=== PATIENT | female | born 1950 | race Caucasian/White ===

== ENCOUNTER 2018-10-29 10:30 | Inpatient (IN) ==
[2018-10-29] MEDS ORDERED: cefTRIAXone 1,000 MG in 0.9 % Sodium Chloride Mini Bag 100 ML IVPB SCH (12:00)
[2018-10-29] MEDS ORDERED: Vancomycin 0 MG in 0.9 % Sodium Chloride 250 ML IVPB SCH (12:00)
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
[2018-10-29] MEDS ORDERED: Ipratropium/Albuterol Neb 3 ML IH PRN (15:39)
[2018-10-29] MEDS: MetroNIDAZOLE 500 MG/100 ML 500 MG/100 ML BAG IVPB SCH ×2 (15:56→23:38)
[2018-10-29] MEDS: Cefepime HCl 2,000 MG in Water for inj. (sterile) 20 ML 20 ML IVP SCH ×2 (15:56→23:34)
[2018-10-29] MEDS ORDERED: tiZANidine 4 MG TABLET PO ONE (21:32)
[2018-10-29] MEDS ORDERED: traMADol 50 MG TABLET PO ONE (21:33)
[2018-10-29] MEDS ORDERED: Furosemide 20 MG TABLET PO PRN (21:34)
[2018-10-29] MEDS: Budesonide/Formoterol 160/4.5 1 PUFF INH IH SCH (22:48)
[2018-10-29] MEDS: Levalbuterol Neb 1.25 MG/3 ML IH SCH (22:49)
[2018-10-30] MEDS ORDERED: Acetaminophen IV 1,000 MG/100 ML INFUS..BTL IVPB ONE (00:18)
[2018-10-30] MEDS: Loratadine 10 MG TABLET PO SCH ×2 (00:23→08:29)
[2018-10-30] MEDS: amLODIPine 5 MG TABLET PO SCH ×2 (00:24→08:28)
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
[2018-10-30] MEDS ORDERED: traMADol 50 MG TABLET PO ONE (03:51)
[2018-10-30] MEDS: Levalbuterol Neb 1.25 MG/3 ML IH SCH ×4 (03:52→22:45)
[2018-10-30] MEDS ORDERED: Nitroglycerin 0.4 MG TAB.SUBL SL PRN (08:16)
[2018-10-30] MEDS ORDERED: *HR* HYDROcodone/Acet 5/325 mg TABLET PO PRN (08:16)
[2018-10-30] MEDS: MetroNIDAZOLE 500 MG/100 ML 500 MG/100 ML BAG IVPB SCH ×2 (08:28→15:27)
[2018-10-30] MEDS: Cefepime HCl 2,000 MG in Water for inj. (sterile) 20 ML 20 ML IVP SCH ×3 (08:28→22:21)
[2018-10-30] MEDS: Aspirin Enteric Coated 81 MG Tablet PO SCH (08:29)
[2018-10-30] MEDS ORDERED: Isosorbide MONOnitrate (24 HR) 30 MG TAB.ER.24H PO SCH (09:00)
[2018-10-30] MEDS ORDERED: Metoprolol XL (24 HR) Succ 50 MG TAB.ER.24H PO SCH (09:00)
[2018-10-30] MEDS: OXYCODONE Oral CONC 10 MG/0.5 ML ORAL.SYG SL PRN ×3 (09:10→21:10)
[2018-10-30] MEDS: Gabapentin 100 MG CAPSULE PO SCH ×3 (09:39→20:35)
[2018-10-30] MEDS: Cholecalciferol (D-3) 1,000 UNIT TABLET PO SCH (09:39)
[2018-10-30] MEDS: Budesonide/Formoterol 160/4.5 1 PUFF INH IH SCH ×2 (09:48→22:45)
[2018-10-30 10:29] LABS: Basophils % 0.3 %; Eosinophils % 0.7 %; Immature Granulocytes % 0.4 % (0-4); Mean Platelet Volume 11.8 fL (9.4-12.4); Segmented Neutrophils % 84.5 %
[2018-10-30 10:31] LABS: Eosinophils # 0.1 K/mcL (0.0-0.6); Hematocrit 29.9 % (35.3-44.9); Hemoglobin 9.4 g/dL (11.5-15.4); Immature Platelets 5.3 % (1.1-6.1); Lymphocytes # 0.6 K/mcL (0.6-4.6); Lymphocytes % 5.5 %; Mean Corpuscular HGB Conc 31.4 g/dL (31.6-35.5); Mean Corpuscular Hemoglobin 29.7 pg (28.0-33.3); Mean Corpuscular Volume 94.3 fL (83.0-100.0); Monocytes # 0.9 K/mcL (0.0-1.3); Monocytes % 8.6 %; Neutrophils # 8.7 K/mcL (1.6-8.9); Red Blood Count 3.17 M/mcL (3.82-4.97); Red Cell Distribution Width 14.3 % (11.5-14.5); White Blood Count 10.3 K/mcL (4.3-11.1)
[2018-10-30 10:48] LABS: BUN/Creatinine Ratio 20 (6-26); Blood Urea Nitrogen 16 mg/dL (8-23); Calcium 8.4 mg/dL (8.6-10.3); Carbon Dioxide 24 mEq/L (23-29); Chloride 109 mEq/L (98-107); Glucose 117 mg/dL (70-105); Osmolality,Calculated 292 (280-300); Potassium 3.6 mEq/L (3.5-5.1); Sodium 140 mEq/L (136-145); eGFR For African Americans > 60 (> 60); eGFR For Non-African Americans > 60 (> 60)
[2018-10-30 11:10] LABS: Platelet Count 91 K/mcL (140-400)
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
[2018-10-30] MEDS: Isosorbide MONOnitrate (24 HR) 30 MG TAB.ER.24H PO SCH (17:06)
[2018-10-30] MEDS: Metoprolol XL (24 HR) Succ 50 MG TAB.ER.24H PO SCH (17:06)
[2018-10-31] MEDS: MetroNIDAZOLE 500 MG/100 ML 500 MG/100 ML BAG IVPB SCH ×4 (00:09→23:54)
[2018-10-31] MEDS: Levalbuterol Neb 1.25 MG/3 ML IH SCH ×2 (04:12→10:43)
[2018-10-31 06:32] LABS: Basophils % 0.4 %; Eosinophils # 0.3 K/mcL (0.0-0.6); Eosinophils % 3.1 %; Hematocrit 30.2 % (35.3-44.9); Hemoglobin 9.4 g/dL (11.5-15.4); Immature Granulocytes % 0.4 % (0-4); Lymphocytes # 0.6 K/mcL (0.6-4.6); Lymphocytes % 7.1 %; Mean Corpuscular HGB Conc 31.1 g/dL (31.6-35.5); Mean Corpuscular Hemoglobin 29.3 pg (28.0-33.3); Mean Corpuscular Volume 94.1 fL (83.0-100.0); Mean Platelet Volume 11.9 fL (9.4-12.4); Monocytes # 0.7 K/mcL (0.0-1.3); Monocytes % 8.6 %; Neutrophils # 6.8 K/mcL (1.6-8.9); Platelet Count 103 K/mcL (140-400); Red Blood Count 3.21 M/mcL (3.82-4.97); Red Cell Distribution Width 14.4 % (11.5-14.5); Segmented Neutrophils % 80.4 %; White Blood Count 8.5 K/mcL (4.3-11.1)
[2018-10-31 06:54] LABS: BUN/Creatinine Ratio 19 (6-26); Blood Urea Nitrogen 14 mg/dL (8-23); Calcium 8.5 mg/dL (8.6-10.3); Carbon Dioxide 26 mEq/L (23-29); Chloride 108 mEq/L (98-107); Glucose 96 mg/dL (70-105); Osmolality,Calculated 290 (280-300); Potassium 3.8 mEq/L (3.5-5.1); Sodium 140 mEq/L (136-145); eGFR For African Americans > 60 (> 60); eGFR For Non-African Americans > 60 (> 60)
--- NOTE | 2018-10-31 08:18 | Internal Med Progress Note ---
Hospitalist Progress Note - Encounter Date of Encounter: 10/31/18 Time of Encounter: 08:16 - Subjective Interval History: Patient states she is not feeling well, very tired and frustrated. She is afebrile on room air. She is to have productive cough. Denies chest pain. Patient lives at home was family. Patient complains of right great toe pain, 8 out of 10 constant worsening with walking. I encouraged her to get up and walk she is afraid of pain from the toe. We discussed incentive spirometry, she agrees - Exam Vitals: Temp Pulse Resp BP Pulse Ox 98.3 F 85 20 157/74 91 10/31/18 07:09 10/31/18 07:09 10/31/18 07:09 10/31/18 07:09 10/31/18 07:09 Exam: CONSTITUTIONAL: patient appears as an age appropriate female in no acute distress. EYES Clear sclerae, bilateral pupils are equal, reactive to light. EMOI. RESPIRATORY: No accessory muscle use, bilateral crackles to auscultation, no wheezing, no crackles/rales. CARDIOVASCULAR: Regular heart rate, normal S1 and S2, no murmurs GASTROINTESTINAL: bowel sounds present, soft, no tenderness. MUSCULOSKELETAL: Joints in normal range of motion, no clubbing, no edema, no cyanosis. Right great toe ischemia NEUROLOGIC: CN II to XII are grossly intact, no focal neurological deficit. DVT Prophylaxis: Patient is only on aspirin due to history of recent subarachnoid hemorrhage - Summary of Assessment and Plan Summary of Assessment and Plan: (1) possible MRSA and gram negative bacterial pneumonia (HCAP), conitnue cefepime and vancomycin Current Visit: Yes Status: Acute Assessment and plan: recent hospitalization from 10/23-10/26 and received IVC filter placement. chest CTA showed multifocal airspace opacities within the right hemithorax patient reports increased shortness of breath with cough at home since her least hospitalization Plan: blood cultures x2 vancomycin, cefepime, flagyl day 1 (hx of penicillin allergy) PRN duonebs add incentitive spirometry (2) CAD (coronary artery disease) Current Visit: No Status: Chronic Qualifiers: Coronary Disease-Associated Artery/Lesion type: [place] artery [place] vs. transplanted heart: [place] heart Associated angina: without angina Qualified Code(s): I25.10 - Atherosclerotic heart disease of [place] coronary artery wi thout angina pectoris (3) HTN (hypertension) and hyperlipidemia Current Visit: No Status: Chronic Assessment and plan: resume home meds once verified Qualifiers: Hypertension type: essential hypertension Qualified Code(s): I10 - Essential (primary) hypertension (4) UTI with acute cystits POA Acute cystitis without hematuria: Urine cultures drawn in the ER growing strep group B and gram-negative rods. Patient currently on antibiotics. pending senmsitivity Current Visit: No Status: Chronic Qualifiers: Hyperlipidemia type: unspecified Qualified Code(s): E78.5 - Hyperlipidemia, unspecified (5) SLE (systemic lupus erythematosus) on plaqunil Current Visit: No Status: Chronic Qualifiers: Systemic lupus erythematosus type: other Systemic lupus erythematosus organ involvement: lung involvement Qualified Code(s): M32.13 - Lung involvement in systemic lupus erythematosus (6) DVT (deep venous thrombosis) Current Visit: No Status: Acute Assessment and plan: Hx of DVT, not on anticoagulation due to hx of traumatic subarachnoid hemorrhage s/p IVC filter placement. Qualifiers: DVT location: lower extremity Affected thrombotic vein of extremity: popliteal Chronicity: unspecified Laterality: right Qualified Code(s): I82.431 - Acute embolism and thrombosis of right popliteal vein (7) History of subarachnoid hemorrhage Current Visit: No Status: Acute (8) DVT prophylaxis, on ASA (9) Morbid obesity with BMI 46 (10) severe PAD with right ischemic toe, not a candidate for intervention due to SAH (11)Right knee severe DJD from CT scan, no acute fx Current Visit: Yes Status: Acute Assessment and plan: Hx of DVTs. Up and ambulate TID DIsposition: possible HHC in 1-2 days, consult PT and OT, pending UC culture, will check legionella - Time Spent with Patient Total time spent is greater than 50% in coordination of care (as documented) at patient's floor/unit and/or counseling patient: 25 - 35 minutes Plan of Care Discussed with: patient Internal Medicine: Result - Labs CBC & Chem 7: 10/31/18 05:54 10/31/18 05:54 Labs: Short CBC 10/30/18 10/31/18 Range/Units 10:08 05:54 WBC 10.3 8.5 (4.3-11.1) K/mcL Hgb 9.4 L D 9.4 L (11.5-15.4) g/dL Hct 29.9 L 30.2 L (35.3-44.9) % Plt Count 91 L 103 L (140-400) K/mcL Neutrophils # 8.7 6.8 (1.6-8.9) K/mcL BMP 10/30/18 10/31/18 10:08 05:54 Sodium 140 140 Potassium 3.6 3.8 Chloride 109 H 108 H Carbon Dioxide 24 26 BUN 16 14 Creatinine 0.79 0.73 Glucose 117 H 96 Calcium 8.4 L 8.5 L - Impressions Impressions Lower Extremity CT 10/30/18 18:17 IMPRESSION: 1. No acute osseous abnormality. 2. Severe tricompartmental degenerative changes of the knee with a moderate effusion. 3. Mild 1st MTP degenerative changes. D/ / Leonel Ram MD / Leonel Ram MD Interpreting Provider: Leonel Ram MD Consult Discharge Plan - Plan Referrals: NONE,PCP [Primary Care Provider] -
[2018-10-31] MEDS: Cefepime HCl 2,000 MG in Water for inj. (sterile) 20 ML 20 ML IVP SCH ×3 (09:51→23:53)
[2018-10-31] MEDS: amLODIPine 5 MG TABLET PO SCH (09:52)
[2018-10-31] MEDS: Gabapentin 100 MG CAPSULE PO SCH ×3 (09:52→20:13)
[2018-10-31] MEDS: Loratadine 10 MG TABLET PO SCH (09:52)
[2018-10-31] MEDS: Cholecalciferol (D-3) 1,000 UNIT TABLET PO SCH (09:52)
[2018-10-31] MEDS: OXYCODONE Oral CONC 10 MG/0.5 ML ORAL.SYG SL PRN ×3 (09:53→22:22)
[2018-10-31] MEDS: Aspirin Enteric Coated 81 MG Tablet PO SCH (09:53)
[2018-10-31] MEDS: Budesonide/Formoterol 160/4.5 1 PUFF INH IH SCH ×2 (10:43→19:58)
[2018-10-31] MEDS: Isosorbide MONOnitrate (24 HR) 30 MG TAB.ER.24H PO SCH (17:49)
[2018-10-31] MEDS: Metoprolol XL (24 HR) Succ 50 MG TAB.ER.24H PO SCH (17:49)
[2018-10-31] MEDS ORDERED: Aminoglycoside Consult 1 EACH MC ONE (20:09)
[2018-11-01] MEDS: OXYCODONE Oral CONC 10 MG/0.5 ML ORAL.SYG SL PRN ×2 (03:38→09:24)
[2018-11-01] MEDS: Budesonide/Formoterol 160/4.5 1 PUFF INH IH SCH ×2 (07:20→19:56)
[2018-11-01 07:44] LABS: Basophils % 0.4 %; Eosinophils # 0.4 K/mcL (0.0-0.6); Eosinophils % 4.6 %; Hematocrit 33.6 % (35.3-44.9); Hemoglobin 10.3 g/dL (11.5-15.4); Immature Granulocytes % 0.5 % (0-4); Mean Corpuscular HGB Conc 30.7 g/dL (31.6-35.5); Mean Corpuscular Hemoglobin 28.7 pg (28.0-33.3); Mean Corpuscular Volume 93.6 fL (83.0-100.0); Monocytes # 0.8 K/mcL (0.0-1.3); Monocytes % 8.7 %; Neutrophils # 7.2 K/mcL (1.6-8.9); Platelet Count 152 K/mcL (140-400); Red Blood Count 3.59 M/mcL (3.82-4.97); Red Cell Distribution Width 14.5 % (11.5-14.5); Segmented Neutrophils % 75.8 %; White Blood Count 9.5 K/mcL (4.3-11.1)
[2018-11-01 07:56] LABS: BUN/Creatinine Ratio 17 (6-26); Blood Urea Nitrogen 11 mg/dL (8-23); Calcium 8.7 mg/dL (8.6-10.3); Carbon Dioxide 25 mEq/L (23-29); Chloride 105 mEq/L (98-107); Glucose 92 mg/dL (70-105); Osmolality,Calculated 287 (280-300); Sodium 139 mEq/L (136-145); eGFR For African Americans > 60 (> 60); eGFR For Non-African Americans > 60 (> 60)
[2018-11-01] MEDS: amLODIPine 5 MG TABLET PO SCH (09:28)
[2018-11-01] MEDS: Aspirin Enteric Coated 81 MG Tablet PO SCH (09:28)
[2018-11-01] MEDS: Gabapentin 100 MG CAPSULE PO SCH (09:28)
[2018-11-01] MEDS: Cefepime HCl 2,000 MG in Water for inj. (sterile) 20 ML 20 ML IVP SCH ×2 (09:28→13:08)
[2018-11-01] MEDS: Cholecalciferol (D-3) 1,000 UNIT TABLET PO SCH (09:28)
[2018-11-01] MEDS: Loratadine 10 MG TABLET PO SCH (09:28)
[2018-11-01] MEDS: MetroNIDAZOLE 500 MG/100 ML 500 MG/100 ML BAG IVPB SCH ×2 (09:29→13:05)
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
[2018-11-01] MEDS: Gabapentin 400 MG CAPSULE PO SCH ×3 (13:16→20:36)
[2018-11-01] MEDS: *HR* OxyCODONE/APAP 10/325 TABLET PO PRN ×2 (13:34→20:36)
[2018-11-01] MEDS: metroNIDAZOLE 500 MG TABLET PO SCH ×2 (17:00→20:36)
[2018-11-01] MEDS: Doxycycline 100 MG CAPSULE PO SCH (17:00)
[2018-11-01] MEDS: Metoprolol XL (24 HR) Succ 50 MG TAB.ER.24H PO SCH (17:00)
[2018-11-01] MEDS: Isosorbide MONOnitrate (24 HR) 30 MG TAB.ER.24H PO SCH (17:00)
[2018-11-01] MEDS: *HR* OxyCODONE/APAP 5/325 TABLET PO PRN (17:15)
[2018-11-01] MEDS ORDERED: Doxycycline 100 MG in 0.9 % Sodium Chloride Mini Bag 100 ML IVPB SCH (18:00)
[2018-11-01] MEDS: Levalbuterol Neb 1.25 MG/3 ML IH PRN (19:56)
[2018-11-01] MEDS: Cefdinir 300 MG CAPSULE PO SCH (20:36)
[2018-11-02] MEDS: *HR* OxyCODONE/APAP 10/325 TABLET PO PRN ×4 (00:42→21:20)
[2018-11-02 04:30] LABS: Basophils # 0.1 K/mcL (0.0-0.2); Basophils % 0.7 %; Eosinophils # 0.4 K/mcL (0.0-0.6); Eosinophils % 5.1 %; Hematocrit 31.1 % (35.3-44.9); Hemoglobin 9.9 g/dL (11.5-15.4); Immature Granulocytes % 1.1 % (0-4); Lymphocytes % 11.9 %; Mean Corpuscular HGB Conc 31.8 g/dL (31.6-35.5); Mean Corpuscular Volume 91.2 fL (83.0-100.0); Mean Platelet Volume 11.4 fL (9.4-12.4); Monocytes % 12.2 %; Neutrophils # 5.9 K/mcL (1.6-8.9); Platelet Count 174 K/mcL (140-400); Red Blood Count 3.41 M/mcL (3.82-4.97); Red Cell Distribution Width 14.6 % (11.5-14.5); White Blood Count 8.5 K/mcL (4.3-11.1)
[2018-11-02 05:09] LABS: BUN/Creatinine Ratio 22 (6-26); Blood Urea Nitrogen 14 mg/dL (8-23); Calcium 8.4 mg/dL (8.6-10.3); Carbon Dioxide 24 mEq/L (23-29); Chloride 107 mEq/L (98-107); Glucose 99 mg/dL (70-105); Osmolality,Calculated 289 (280-300); Potassium 3.8 mEq/L (3.5-5.1); Sodium 139 mEq/L (136-145); eGFR For African Americans > 60 (> 60); eGFR For Non-African Americans > 60 (> 60)
[2018-11-02] MEDS: *HR* OxyCODONE/APAP 5/325 TABLET PO PRN ×2 (05:39→09:14)
[2018-11-02] MEDS: Doxycycline 100 MG CAPSULE PO SCH ×2 (05:39→17:01)
[2018-11-02] MEDS: Levalbuterol Neb 1.25 MG/3 ML IH PRN ×2 (07:31→19:36)
[2018-11-02] MEDS: Budesonide/Formoterol 160/4.5 1 PUFF INH IH SCH ×2 (07:31→19:36)
[2018-11-02] MEDS: Cholecalciferol (D-3) 1,000 UNIT TABLET PO SCH (09:14)
[2018-11-02] MEDS: Aspirin Enteric Coated 81 MG Tablet PO SCH (09:14)
[2018-11-02] MEDS: Gabapentin 400 MG CAPSULE PO SCH ×3 (09:14→21:20)
[2018-11-02] MEDS: metroNIDAZOLE 500 MG TABLET PO SCH ×3 (09:15→21:20)
[2018-11-02] MEDS: amLODIPine 5 MG TABLET PO SCH (09:15)
[2018-11-02] MEDS: Cefdinir 300 MG CAPSULE PO SCH ×2 (09:15→21:20)
[2018-11-02] MEDS: Loratadine 10 MG TABLET PO SCH (09:24)
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
--- NOTE | 2018-11-02 16:47 | Internal Med Progress Note ---
Hospitalist Progress Note - Encounter Date of Encounter: 11/02/18 Time of Encounter: 16:42 - Subjective Interval History: Angela is not happy, she really wants to go to rehab, she is in so much pain 12/22, I disucced PT did not qualify her for SNF, Angela requests another formal PT evaluation. - Exam Vitals: Temp Pulse Resp BP Pulse Ox 98.5 F 91 17 149/75 93 11/02/18 12:28 11/02/18 12:28 11/02/18 12:28 11/02/18 12:11/02/18 12:28 Exam: CONSTITUTIONAL: patient appears as an age appropriate female in no acute distress. EYES Clear sclerae, bilateral pupils are equal, reactive to light. EMOI. RESPIRATORY: No accessory muscle use, bilateral crackles to auscultation, no wheezing, no crackles/rales. CARDIOVASCULAR: Regular heart rate, normal S1 and S2, no murmurs GASTROINTESTINAL: bowel sounds present, soft, no tenderness. MUSCULOSKELETAL: Joints in normal range of motion, no clubbing, no edema, no cyanosis. Right great toe ischemia NEUROLOGIC: CN II to XII are grossly intact, no focal neurological deficit. DVT Prophylaxis: Patient is only on aspirin due to history of recent subarachnoid hemorrhage - Summary of Assessment and Plan Summary of Assessment and Plan: (1) possible MRSA and gram negative bacterial pneumonia (HCAP), conitnue cefepime and vancomycin Current Visit: Yes Status: Acute Assessment and plan: recent hospitalization from 10/23-10/26 and received IVC filter placement. chest CTA showed multifocal airspace opacities within the right hemithorax patient reports increased shortness of breath with cough at home since her least hospitalization Plan: blood cultures x2, negative legionella vancomycin, cefepime, flagyl day 1 (hx of penicillin allergy) PRN duonebs add incentitive spirometry d/c vancomycin, add doxy can discharge on oral ATB (2) CAD (coronary artery disease) Current Visit: No Status: Chronic Qualifiers: Coronary Disease-Associated Artery/Lesion type: [place] artery [place] vs. transplanted heart: [place] heart Associated angina: without angina Qualified Code(s): I25.10 - Atherosclerotic heart disease of [place] coronary artery without angina pectoris (3) HTN (hypertension) and hyperlipidemia Current Visit: No Status: Chronic Assessment and plan: resume home meds once verified Qualifiers: Hypertension type: essential hypertension Qualified Code(s): I10 - Essential (primary) hypertension (4) UTI with acute cystits POA Acute cystitis without hematuria: Urine cultures drawn in the ER growing strep group B and gram-negative rods. Patient currently on antibiotics. pending senmsitivity Current Visit: No Status: Chronic Qualifiers: Hyperlipidemia type: unspecified Qualified Code(s): E78.5 - Hyperlipidemia, unspecified (5) SLE (systemic lupus erythematosus) on plaqunil Current Visit: No Status: Chronic Qualifiers: Systemic lupus erythematosus type: other Systemic lupus erythematosus organ involvement: lung involvement Qualified Code(s): M32.13 - Lung involvement in systemic lupus erythematosus (6) DVT (deep venous thrombosis) Current Visit: No Status: Acute Assessment and plan: Hx of DVT, not on anticoagulation due to hx of traumatic subarachnoid hemorrhage s/p IVC filter placement. Qualifiers: DVT location: lower extremity Affected thrombotic vein of extremity: popliteal Chronicity: unspecified Laterality: right Qualified Code(s): I82.431 - Acute embolism and thrombosis of right popliteal vein (7) History of subarachnoid hemorrhage Current Visit: No Status: Acute (8) DVT prophylaxis, on ASA (9) Morbid obesity with BMI 46 (10) severe PAD with right ischemic toe, not a candidate for intervention due to SAH , pain control with percoert 5 /325 Q4 and 10/325 for pain scale >5, increased neurontin to 400 mg tid (11)Right knee severe DJD from CT scan, no acute fx Current Visit: Yes Status: Acute Assessment and plan: Hx of DVTs. Up and ambulate TID DIsposition: Patient refused to go home with home care, requests another PT evaluation, I spoke to PT , they will see her tomorrow. patient has multiple comorbidities, and uncontroled pain from ischemic toe, she may benifit from SNF, wait for PT re-evaluation - Time Spent with Patient Total time spent is greater than 50% in coordination of care (as documented) at patient's floor/unit and/or counseling patient: Internal Medicine: Result - Labs CBC & Chem 7: 11/02/18 04:14 11/02/18 04:14 Labs: Short CBC 11/02/18 Range/Units 04:14 WBC 8.5 (4.3-11.1) K/mcL Hgb 9.9 L (11.5-15.4) g/dL Hct 31.1 L (35.3-44.9) % Plt Count 174 (140-400) K/mcL Neutrophils # 5.9 (1.6-8.9) K/mcL BMP 11/02/18 04:14 Sodium 139 Potassium 3.8 Chloride 107 Carbon Dioxide 24 BUN 14 Creatinine 0.64 Glucose 99 Calcium 8.4 L Consult Discharge Plan - Plan Referrals: NONE,PCP [Primary Care Provider] -
[2018-11-02] MEDS: Isosorbide MONOnitrate (24 HR) 30 MG TAB.ER.24H PO SCH (17:00)
[2018-11-02] MEDS: Metoprolol XL (24 HR) Succ 50 MG TAB.ER.24H PO SCH (17:01)
[2018-11-03] MEDS: Doxycycline 100 MG CAPSULE PO SCH (06:11)
[2018-11-03] MEDS: Budesonide/Formoterol 160/4.5 1 PUFF INH IH SCH ×2 (07:56→20:14)
[2018-11-03] MEDS: Loratadine 10 MG TABLET PO SCH (08:06)
[2018-11-03] MEDS: Cefdinir 300 MG CAPSULE PO SCH (08:06)
[2018-11-03] MEDS: Cholecalciferol (D-3) 1,000 UNIT TABLET PO SCH (08:06)
[2018-11-03] MEDS: Aspirin Enteric Coated 81 MG Tablet PO SCH (08:06)
[2018-11-03] MEDS: amLODIPine 5 MG TABLET PO SCH (08:06)
[2018-11-03] MEDS: metroNIDAZOLE 500 MG TABLET PO SCH (08:06)
[2018-11-03] MEDS: Gabapentin 400 MG CAPSULE PO SCH ×3 (08:06→20:32)
[2018-11-03] MEDS: *HR* OxyCODONE/APAP 10/325 TABLET PO PRN ×4 (08:06→20:32)
--- NOTE | 2018-11-03 09:27 | Internal Med Progress Note ---
Hospitalist Progress Note - Encounter Date of Encounter: 11/03/18 Time of Encounter: 09:25 - Subjective Interval History: Patient was seen and examined at the bedside., Labs and imaging reviewed Patient state right great toe paiun is under control still has erythema and swelling of right foot switch to iv clindamycin pending pt/ot for possible SNF placement on Monday or Monday - Exam Vitals: Temp Pulse Resp BP Pulse Ox 98.5 F 80 14 134/77 93 11/03/18 07:53 11/03/18 07:53 11/03/18 07:56 11/03/18 07:53 11/03/18 07:56 Exam: Physical examination: Gen.: Patient is alert and oriented, not in respiratory distress of pain HEENT: perrla , EOMI, no thyroid gland enlargement, no neck mass, supple neck Heart: S1 and S2 ju[place], normal sinus rhythm, no cardiac murmur no gallop rhythm Chest: Air entry equal bilaterally, clear chest, no wheezing, crackles or cre pitation Abdomen: Soft nontender nondistended positive bowel sounds, no organomegaly Extremities: There is swelling, tenderness with erythema of the right foot, there is bluish blackish discoloration of the right great toe Neuro: Able to move all 4 limbs, no focal neurological deficit. DVT Prophylaxis: aspirin - Summary of Assessment and Plan Summary of Assessment and Plan: (1) possible pneumonia Current Visit: Yes Status: Acute Assessment and plan: recent hospitalization from 10/23-10/26 and received IVC filter placement. chest CTA showed multifocal airspace opacities within the right hemithorax patient reports increased shortness of breath with cough at home since her least hospitalization blood cultures x2, negative legionella Switch to IV clindamycin Patient denies shortness of breath or cough PRN duonebs add incentitive spirometry can discharge on oral ATB Order another follow-up chest x-ray and serum procal 2- peripheral vascular disease: Patient has known moderate peripheral vascular disease of the right lower extremity with an occluded anterior tibial and peroneal artery, patient's sister has evidence of right foot cellulitis with skin erythema and bluish discoloration of right great toe with right great toe pain For now for scar surgeon on board to comment no intervention as the patient unable to tolerate aggressive antiplatelets or anticoagulation secondary to recent subarachnoid hemorrhage. Continue on baby aspirin 81 mg daily Because of the persistent cellulitis of the right foot concerning for partial recovery, switch o iv clindamycin 300 mg every 8 hours DC oral doxycycline and oral Flagyl (2) CAD (coronary artery disease) Current Visit: No Status: Chronic Qualifiers: Coronary Disease-Associated Artery/Lesion type: [place] artery [place] vs. transplanted heart: [place] heart Associated angina: without angina Qualified Code(s): I25.10 - Atherosclerotic heart disease of [place] coronary artery without angina pectoris (3) HTN (hypertension) and hyperlipidemia Current Visit: No Status: Chronic Assessment and plan: resume home meds once verified Qualifiers: Hypertension type: essential hypertension Qualified Code(s): I10 - Essential (primary) hypertension (4) UTI with acute cystits POA Acute cystitis without hematuria: Urine cultures drawn in the ER on 10/29 growing strep group B and E coli sensitive to third- generation cephalosporin, continue on ceftin 500 mg q12h for total 7 days Rx Repeated urine culture on October 30 is negative Current Visit: No Status: Chronic Qualifiers: Hyperlipidemia type: unspecified Qualified Code(s): E78.5 - Hyperlipidemia, unspecified (5) SLE (systemic lupus erythematosus) on plaqunil Current Visit: No Status: Chronic Qualifiers: Systemic lupus erythematosus type: other Systemic lupus erythematosus organ involvement: lung involvement Qualified Code(s): M32.13 - Lung involvement in systemic lupus erythematosus (6) DVT (deep venous thrombosis) Current Visit: No Status: Acute Assessment and plan: Hx of DVT, not on anticoagulation due to hx of traumatic subarachnoid hemorrhage s/p IVC filter placement. Qualifiers: DVT location: lower extremity Affected thrombotic vein of extremity: popliteal Chronicity: unspecified Laterality: right Qualified Code(s): I82.431 - Acute embolism and thrombosis of right popliteal vein (7) History of subarachnoid hemorrhage Current Visit: No Status: Acute Heart the follow-ups CAT scan of the head (8) DVT prophylaxis, on ASA (9) Morbid obesity with BMI 46 (10) severe PAD with right ischemic toe, not a candidate for intervention due to SAH , pain control with percoert 5 /325 Q4 and 10/325 for pain scale >5, increased neurontin to 400 mg tid (11)Right knee severe DJD from CT scan, no acute fx Current Visit: Yes Status: Acute Assessment and plan: Hx of DVTs. Up and ambulate TID DIsposition: Patient requested another PT evaluation, waiting for another PT evaluation and possible SNF discharge on Monday or Monday patient has multiple comorbidities, and uncontroled pain from ischemic toe, she may benifit from SNF, wait for PT re-evaluation - Time Spent with Patient Total time spent is greater than 50% in coordination of care (as documented) at patient's floor/unit and/or counseling patient: Plan of Care Discussed with: patient Internal Medicine: Result - Labs CBC & Chem 7: 11/02/18 04:14 11/02/18 04:14 Consult Discharge Plan - Plan Referrals: NONE,PCP [Primary Care Provider] -
[2018-11-03] MEDS: Clindamycin 300 MG in D5% in Water 50 ML IVPB SCH (14:55)
[2018-11-03] MEDS: Isosorbide MONOnitrate (24 HR) 30 MG TAB.ER.24H PO SCH (16:05)
[2018-11-03] MEDS: Metoprolol XL (24 HR) Succ 50 MG TAB.ER.24H PO SCH (16:05)
[2018-11-03] MEDS: Furosemide Oral Soln 40 MG/4 ML UDC PO SCH (17:09)
[2018-11-03] MEDS: Cefuroxime PO 500 MG TABLET PO SCH (17:09)
[2018-11-03] MEDS: Levalbuterol Neb 1.25 MG/3 ML IH PRN (20:14)
[2018-11-04] MEDS: Clindamycin 300 MG in D5% in Water 50 ML IVPB SCH ×3 (00:36→17:29)
[2018-11-04] MEDS: *HR* OxyCODONE/APAP 10/325 TABLET PO PRN ×6 (00:37→21:57)
[2018-11-04] MEDS: Cefuroxime PO 500 MG TABLET PO SCH (04:28)
[2018-11-04] MEDS: Levalbuterol Neb 1.25 MG/3 ML IH PRN ×2 (07:59→20:34)
[2018-11-04] MEDS: Budesonide/Formoterol 160/4.5 1 PUFF INH IH SCH ×2 (07:59→20:36)
[2018-11-04] MEDS: Loratadine 10 MG TABLET PO SCH (08:32)
[2018-11-04] MEDS: Cholecalciferol (D-3) 1,000 UNIT TABLET PO SCH (08:32)
[2018-11-04] MEDS: Furosemide Oral Soln 40 MG/4 ML UDC PO SCH (08:32)
[2018-11-04] MEDS: Aspirin Enteric Coated 81 MG Tablet PO SCH (08:32)
[2018-11-04] MEDS: Gabapentin 400 MG CAPSULE PO SCH ×3 (08:32→21:57)
[2018-11-04] MEDS: amLODIPine 5 MG TABLET PO SCH (08:32)
[2018-11-04] MEDS ORDERED: Cefdinir 300 MG CAPSULE PO SCH (09:00)
--- NOTE | 2018-11-04 09:00 | Internal Med Progress Note ---
Hospitalist Progress Note - Encounter Date of Encounter: 11/04/18 Time of Encounter: 08:58 - Subjective Interval History: the patient was seen and examined at bedside. state right foot pain is better erythema and swelling is better too no fever breathing is better CXr yesterday show Improving bilateral asymmetric multifocal pneumonia more pro minent on the right.probably small right pleural effusion, resumed on lasix - Exam Vitals: Temp Pulse Resp BP Pulse Ox 98.0 F 78 16 147/80 93 11/04/18 08:04 11/04/18 08:04 11/04/18 08:04 11/04/18 08:04 11/04/18 08:42 Exam: Physical examination: Gen.: Patient is alert and oriented, not in respiratory distress of pain HEENT: perrla , EOMI, no thyroid gland enlargement, no neck mass, supple neck Heart: S1 and S2 juanpablo, normal sinus rhythm, no cardiac murmur no gallop rhythm Chest: Air entry equal bilaterally, clear chest, no wheezing, crackles or crepitation Abdomen: Soft nontender nondistended positive bowel sounds, no organomegaly Extremities: There is swelling, tenderness with erythema of the right foot, there is bluish blackish discoloration of the right great toe Neuro: Able to move all 4 limbs, no focal neurological deficit. DVT Prophylaxis: aspirin - Summary of Assessment and Plan Summary of Assessment and Plan: (1) possible pneumonia Current Visit: Yes Status: Acute Assessment and plan: recent hospitalization from 10/23-10/26 and received IVC filter placement. chest CTA showed multifocal airspace opacities within the right hemithorax blood cultures x2, negative legionella continue on IV clindamycin an d switch to oral on d/c Patient states breathing is better follow CXR on 11/02 show Improving bilateral asymmetric multifocal pneumonia more prominent on the right with right pleural effusion small PRN duonebs add incentitive spirometry serum procal 1.8 saturating well on RA 2- Peripheral vascular disease: Patient has known moderate peripheral vascular disease of the right lower extremity with an occluded anterior tibial and peroneal artery, patient's sister has evidence of right foot cellulitis with skin erythema and bluish discoloration of right great toe with right great toe pain For now for scar surgeon on board to comment no intervention as the patient unable to tolerate aggressive antiplatelets or anticoagulation secondary to recent subarachnoid hemorrhage. Continue on baby aspirin 81 mg daily Because of the persistent cellulites of the right foot concerning for partial r ecovery, switch o iv clindamycin 300 mg every 8 hours clinically cellulites looks better than yesterday with less swelling and erythema follow up with vascular surgery outpatient (2) CAD (coronary artery disease) Current Visit: No Status: Chronic Qualifiers: Coronary Disease-Associated Artery/Lesion type: [place] artery [place] vs. transplanted heart: [place] heart Associated angina: without angina Qualified Code(s): I25.10 - Atherosclerotic heart disease of [place] coronary artery without angina pectoris (3) HTN (hypertension) and hyperlipidemia Current Visit: No Status: Chronic Assessment and plan: resume home meds once verified Qualifiers: Hypertension type: essential hypertension Qualified Code(s): I10 - Essential (primary) hypertension (4) UTI with acute cystits POA Acute cystitis without hematuria: Urine cultures drawn in the ER on 10/29 growing strep group B and E coli sensitive to third- generation cephalosporins and levofloxacin, finished 7 days course of AB for UTI d/c cefitin PO Current Visit: No Status: Chronic Qualifiers: Hyperlipidemia type: unspecified Qualified Code(s): E78.5 - Hyperlipidemia, unspecified (5) SLE (systemic lupus erythematosus) on plaqunil Current Visit: No Status: Chronic Qualifiers: Systemic lupus erythematosus type: other Systemic lupus erythematosus organ involvement: lung involvement Qualified Code(s): M32.13 - Lung involvement in systemic lupus erythematosus (6) DVT (deep venous thrombosis) Current Visit: No Status: Acute Assessment and plan: Hx of DVT, not on anticoagulation due to hx of traumatic subarachnoid hemorrhage s/p IVC filter placement. Qualifiers: DVT location: lower extremity Affected thrombotic vein of extremity: popliteal Chronicity: unspecified Laterality: right Qualified Code(s): I82.431 - Acute embolism and thrombosis of right popliteal vein (7) History of subarachnoid hemorrhage Current Visit: No Status: Acute CT head on 11/03 show Resolved subarachnoid hemorrhage. need follow up with neurosurgery for clearance before vascular surgery discussed with patient (8) DVT prophylaxis, on ASA (9) Morbid obesity with BMI 46 (10) severe PAD with right ischemic toe, not a candidate for intervention due to SAH , pain control with percoert 5 /325 Q4 and 10/325 for pain scale >5, increased neurontin to 400 mg tid (11)Right knee severe DJD from CT scan, no acute fx Current Visit: Yes Status: Acute Assessment and plan: Hx of DVTs. Up and ambulate TID DIsposition: Patient requested another PT evaluation, PT recommend SNF discharge on Monday or Monday patient has multiple comorbidities, and uncontroled pain from ischemic toe, she will benifit from SNF. waiting for placement - Time Spent with Patient Total time spent is greater than 50% in coordination of care (as documented) at patient's floor/unit and/or counseling patient: Internal Medicine: Result - Labs CBC & Chem 7: 11/02/18 04:14 11/02/18 04:14 - Impressions Impressions Head CT 11/03/18 09:22 IMPRESSION: Resolved subarachnoid hemorrhage. No acute intracranial process identified. D/ / Song Littlejohn MD / Song Littlejohn MD Interpreting Provider: Song Littlejohn MD Chest X-Ray 11/03/18 09:31 IMPRESSION: 1. Improving bilateral asymmetric multifocal pneumonia more prominent on the right. 2. Probable trace right pleural effusion. D/ / 11/03/2018 12:07:07 Darin Avalos MD / janett Interpreting Provider: Darin Avalos MD Consult Discharge Plan - Plan Referrals: NONE,PCP [Primary Care Provider] -
[2018-11-04 10:05] LABS: Hemoglobin 10.4 g/dL (11.5-15.4); Mean Corpuscular HGB Conc 31.5 g/dL (31.6-35.5); Mean Corpuscular Hemoglobin 29.1 pg (28.0-33.3); Mean Corpuscular Volume 92.2 fL (83.0-100.0); Mean Platelet Volume 10.8 fL (9.4-12.4); Platelet Count 234 K/mcL (140-400); Red Blood Count 3.58 M/mcL (3.82-4.97); Red Cell Distribution Width 14.6 % (11.5-14.5); White Blood Count 9.7 K/mcL (4.3-11.1)
[2018-11-04 10:26] LABS: Alanine Aminotransferase 14 Units/L (7-52); Albumin 3.1 g/dL (3.5-5.7); Albumin/Globulin Ratio 1.1 (1.1-2.2); Alkaline Phosphatase 40 Units/L (34-104); Aspartate Amino Transferase 22 Units/L (13-39); BUN/Creatinine Ratio 13 (6-26); Bilirubin,Total 0.3 mg/dL (0.3-1.0); Blood Urea Nitrogen 9 mg/dL (8-23); Calcium 8.5 mg/dL (8.6-10.3); Carbon Dioxide 28 mEq/L (23-29); Chloride 103 mEq/L (98-107); Globulin 2.8 g/dL (2.4-3.5); Glucose 117 mg/dL (70-105); Magnesium 1.7 mg/dL (1.6-2.6); Osmolality,Calculated 288 (280-300); Phosphorous 3.4 mg/dL (2.7-4.5); Potassium 3.5 mEq/L (3.5-5.1); Sodium 139 mEq/L (136-145); Total Protein 5.9 g/dL (6.4-8.9); eGFR For African Americans > 60 (> 60); eGFR For Non-African Americans > 60 (> 60)
[2018-11-04] MEDS: Isosorbide MONOnitrate (24 HR) 30 MG TAB.ER.24H PO SCH (16:29)
[2018-11-04] MEDS: Metoprolol XL (24 HR) Succ 50 MG TAB.ER.24H PO SCH (16:31)
[2018-11-05] MEDS: Clindamycin 300 MG in D5% in Water 50 ML IVPB SCH ×2 (02:49→09:17)
[2018-11-05] MEDS: *HR* OxyCODONE/APAP 10/325 TABLET PO PRN ×4 (02:50→17:45)
[2018-11-05 04:19] LABS: Hematocrit 30.6 % (35.3-44.9); Hemoglobin 9.6 g/dL (11.5-15.4); Mean Corpuscular HGB Conc 31.4 g/dL (31.6-35.5); Mean Corpuscular Volume 92.4 fL (83.0-100.0); Platelet Count 222 K/mcL (140-400); Red Blood Count 3.31 M/mcL (3.82-4.97); Red Cell Distribution Width 14.7 % (11.5-14.5); White Blood Count 9.9 K/mcL (4.3-11.1)
[2018-11-05 04:41] LABS: Alanine Aminotransferase 13 Units/L (7-52); Albumin 2.9 g/dL (3.5-5.7); Albumin/Globulin Ratio 1.2 (1.1-2.2); Alkaline Phosphatase 37 Units/L (34-104); Aspartate Amino Transferase 19 Units/L (13-39); BUN/Creatinine Ratio 16 (6-26); Bilirubin,Total 0.2 mg/dL (0.3-1.0); Blood Urea Nitrogen 12 mg/dL (8-23); Calcium 8.5 mg/dL (8.6-10.3); Carbon Dioxide 30 mEq/L (23-29); Chloride 100 mEq/L (98-107); Globulin 2.5 g/dL (2.4-3.5); Glucose 108 mg/dL (70-105); Magnesium 1.8 mg/dL (1.6-2.6); Osmolality,Calculated 288 (280-300); Phosphorous 3.9 mg/dL (2.7-4.5); Potassium 3.8 mEq/L (3.5-5.1); Sodium 139 mEq/L (136-145); Total Protein 5.4 g/dL (6.4-8.9); eGFR For African Americans > 60 (> 60); eGFR For Non-African Americans > 60 (> 60)
[2018-11-05] MEDS: Budesonide/Formoterol 160/4.5 1 PUFF INH IH SCH (07:32)
[2018-11-05] MEDS: Levalbuterol Neb 1.25 MG/3 ML IH PRN (07:39)
[2018-11-05] MEDS: Gabapentin 400 MG CAPSULE PO SCH ×2 (08:40→17:44)
[2018-11-05] MEDS: Loratadine 10 MG TABLET PO SCH (08:40)
[2018-11-05] MEDS: Cholecalciferol (D-3) 1,000 UNIT TABLET PO SCH (08:40)
[2018-11-05] MEDS: Furosemide Oral Soln 40 MG/4 ML UDC PO SCH (08:40)
[2018-11-05] MEDS: Aspirin Enteric Coated 81 MG Tablet PO SCH (08:40)
[2018-11-05] MEDS: amLODIPine 5 MG TABLET PO SCH (08:42)
[2018-11-05] MEDS ORDERED: Doxycycline 100 MG CAPSULE PO SCH (09:30)
[2018-11-05] MEDS ORDERED: Cefdinir 300 MG CAPSULE PO SCH (09:30)
--- NOTE | 2018-11-05 14:01 | Discharge Summary ---
- NOTES TO OUTPATIENT PROVIDER Notes to Outpatient Provider: follow up with ischemic foot with Dr Morgan Orders not resulted at time of discharge: Pending orders 11/03/18 15:48 Bedside Swallowing Evaluation [EVAL] Routine Date of Encounter: 11/05/18 Time of Encounter: 13:53 Hospital course: Ms. Crowley is a 68 year old female (1) possible MRSA and gram negative bacterial pneumonia (HCAP), conitnue cefepime and vancomycin Current Visit: Yes Status: Acute Assessment and plan: recent hospitalization from 10/23-10/26 and received IVC filter placement. chest CTA showed multifocal airspace opacities within the right hemithorax patient reports increased shortness of breath with cough at home since her least hospitalization Plan: blood cultures x2, negative legionella vancomycin, cefepime, flagyl day (hx of penicillin allergy) PRN duonebs add incentitive spirometry d/c vancomycin, add doxy can discharge on oral ATB (2) CAD (coronary artery disease) Current Visit: No Status: Chronic Qualifiers: Coronary Disease-Associated Artery/Lesion type: [place] artery [place] vs. transplanted heart: [place] heart Associated angina: without angina Qualified Code(s): I25.10 - Atherosclerotic heart disease of [place] coronary artery without angina pectoris (3) HTN (hypertension) and hyperlipidemia Current Visit: No Status: Chronic Assessment and plan: resume home meds once verified Qualifiers: Hypertension type: essential hypertension Qualified Code(s): I10 - Essential (primary) hypertension (4) UTI with acute cystits POA Acute cystitis without hematuria: Urine cultures drawn in the ER growing strep group B and gram-negative rods. Patient currently on antibiotics. pending senmsitivity Current Visit: No Status: Chronic Qualifiers: Hyperlipidemia type: unspecified Qualified Code(s): E78.5 - Hyperlipidemia, unspecified (5) SLE (systemic lupus erythematosus) on plaqunil Current Visit: No Status: Chronic Qualifiers: Systemic lupus erythematosus type: other Systemic lupus erythematosus organ involvement: lung involvement Qualified Code(s): M32.13 - Lung involvement in systemic lupus erythematosus (6) DVT (deep venous thrombosis) Current Visit: No Status: Acute Assessment and plan: Hx of DVT, not on anticoagulation due to hx of traumatic subarachnoid hemorrhage s/p IVC filter placement. Qualifiers: DVT location: lower extremity Affected thrombotic vein of extremity: popliteal Chronicity: unspecified Laterality: right Qualified Code(s): I82.431 - Acute embolism and thrombosis of right popliteal vein (7) History of subarachnoid hemorrhage, repepat CT showed improvement, follow up with Dr Cesar. Current Visit: No Status: Acute (8) DVT prophylaxis, on ASA (9) Morbid obesity with BMI 46 (10) severe PAD with right ischemic toe, not a candidate for intervention due to SAH , pain control with percoert 5 /325 Q4 and 10/325 for pain scale >5, give 1 week of oral ATB, follow up with Dr Fry (11)Right knee severe DJD from CT scan, no acute fx DIsposition: PT was re-evaluated on 02/03, patient is discharged to SNF on stable condition. Discharge discussed with: patient Time spent discussing smoking cessation with patient: more than 10 minutes - Time Spent with Patient Total time spent providing and/or coordinating discharge services: Time spent: Greater than 30 minutes - Discharge Medications Prescriptions: New Doxycycline 100 mg PO BID #14 capsule Cefdinir [Omnicef] 300 mg PO BID #14 capsule OxyCODONE/APAP 5/325 [Percocet 5/325 MG] 1 each PO Q4HR PRN 7 Days #30 tablet PRN Reason: Moderate Pain Docusate [Colace] 100 mg PO BID PRN capsule PRN Reason: Constipation Continued Cholecalciferol (Vitamin D3) [Vitamin D3] 6,000 unit PO DAILY Nitroglycerin 0.4 mg SL AD PRN PRN Reason: Chest Pain Pantoprazole Sodium [Protonix] 40 mg PO DAILY Albuterol Sulfate [Ventolin Hfa] 2 puff IH Q4-6H PRN PRN Reason: Shortness Of Breath Hydroxychloroquine [Plaquenuil] 200 mg PO BID Budesonide/Formoterol 160/4.5 [Symbicort 160/4.5] 2 puff IH BIDR Losartan Potassium 50 mg PO DAILY Isosorbide MONOnitrate [Isosorbide Mononitrate ER] 15 mg PO QPM Aspirin Enteric Coated [Aspirin EC] 81 mg PO DAILY 30 Days #30 tablet. Gabapentin [Neurontin] 100 mg PO TID 20 Days #60 capsule Amlodipine Besylate 2.5 mg PO DAILY Furosemide [Lasix] 40 mg PO PRN PRN PRN Reason: Edema Metoprolol Succinate [Toprol Xl] 50 mg PO DAILY Discontinued HYDROcodone/Acet 5/325 mg [[place] 5-325 mg] 1 tab PO Q6H PRN PRN Reason: Pain Home Medications: Albuterol Sulfate [Ventolin Hfa] 2 puff IH Q4-6H PRN 02/19/15 [History] Cholecalciferol (Vitamin D3) [Vitamin D3] 6,000 unit PO DAILY 02/19/15 [History] Hydroxychloroquine [Plaquenuil] 200 mg PO BID 02/19/15 [History] Nitroglycerin 0.4 mg SL AD PRN 02/19/15 [History] Pantoprazole Sodium [Protonix] 40 mg PO DAILY 02/19/15 [History] Budesonide/Formoterol 160/4.5 [Symbicort 160/4.5] 2 puff IH BIDR 08/05/16 [ History] Isosorbide MONOnitrate [Isosorbide Mononitrate ER] 15 mg PO QPM 10/24/18 [History] Losartan Potassium 50 mg PO DAILY 10/24/18 [History] Aspirin Enteric Coated [Aspirin EC] 81 mg PO DAILY 30 Days #30 tablet. 10/26/18 [Rx] Gabapentin [Neurontin] 100 mg PO TID 20 Days #60 capsule 10/26/18 [Rx] Amlodipine Besylate 2.5 mg PO DAILY 10/30/18 [History] Furosemide [Lasix] 40 mg PO PRN PRN 10/30/18 [History] Metoprolol Succinate [Toprol Xl] 50 mg PO DAILY 10/30/18 [History] Cefdinir [Omnicef] 300 mg PO BID #14 capsule 11/05/18 [Rx] Docusate [Colace] 100 mg PO BID PRN capsule 11/05/18 [Rx] Doxycycline 100 mg PO BID #14 capsule 11/05/18 [Rx] OxyCODONE/APAP 5/325 [Percocet 5/325 MG] 1 each PO Q4HR PRN 7 Days #30 tablet 11/05/18 [Rx] Allergies/Adverse Reactions: Allergy/AdvReac Type Severity Reaction Status Date / Time Penicillins [PCN] Allergy Hives Verified 10/30/18 13:26 Sulfa (Sulfonamide Allergy Hives Verified 10/30/18 13:26 Antibiotics) Date of admission: 10/29/18 10:30 Primary care physician: PCP NONE Consults: 10/29/18 16:38 Consult to Vascular Surgery [CONS] Routine Consulting Provider: Vascular Surgery [place] Reason for Consult: hx of PVD, DVT with IVC placement. Right great too looks ischemic with increased pain, worse than before. concern for increased ischemia Call Completed: Yes 10/30/18 08:43 Consult to Nurse Navigator [CONS] Routine Comment: pn 10/31/18 08:32 Consult to Occupational Therapy [CONS] Routine Comment: Evaluate, develop and implement POC Reason for Consult: discharge Does patient have active BEDREST order?: No Is patient medically & hemodynamically stable?: Yes Patient assessed for mobility or mobilized this visit?: Yes Consult to Physical Therapy [CONS] Routine Comment: Evaluate, develop and implement POC Reason for Consult: weakness Does patient have active BEDREST order?: No Is patient medically & hemodynamically stable?: Yes Patient assessed for mobility or mobilized this visit?: Yes 11/02/18 16:38 Consult to Physical Therapy [CONS] Routine Comment: Evaluate, develop and implement POC Reason for Consult: weakness SNF qualification Does patient have active BEDREST order?: No Is patient medically & hemodynamically stable?: Yes Patient assessed for mobility or mobilized this visit?: Yes 11/05/18 08:52 Consult to Chief Relay Tester [CONS] Routine Reason for SW Consult: needs ecf, has auto ins - Constitutional Vitals: Temp Pulse Resp BP Pulse Ox 98.6 F 81 17 134/76 92 11/05/18 11:45 11/05/18 11:45 11/05/18 11:45 11/05/18 11:45 11/05/18 11:45 General appearance: Present: A&O X 3, pleasant, no acute distress, answers questions appropriately Exam: Physical examination: Gen.: Patient is alert and oriented, not in respiratory distress of pain HEENT: perrla , EOMI, no thyroid gland enlargement, no neck mass, supple neck Heart: S1 and S2 juan[place], normal sinus rhythm, no cardiac murmur no gallop rhythm Chest: Air entry equal bilaterally, clear chest, no wheezing, crackles or crepitation Abdomen: Soft nontender nondistended positive bowel sounds, no organomegaly Extremities: There is swelling, tenderness with erythema of the right foot, there is bluish blackish discoloration of the right great toe Neuro: Able to move all 4 limbs, no focal neurological deficit. - Patient Status Disposition: Transfer SNF Condition: Good Functional capacity at discharge: uses cane/walker Overall status at discharge: patient is not back to baseline - Discharge Instructions Follow Up With: NONE,PCP [Primary Care Provider] - Isaias Fry MD [Partnered Physician] -
--- NOTE | 2018-11-05 14:11 | Physician Discharge Referral ---
ExtendedCare Referral Info Transfer To: [facility] Institutional Level of Care: Skilled - Transfer Medications Prescriptions: Doxycycline 100 mg PO BID #14 capsule Cefdinir [Omnicef] 300 mg PO BID #14 capsule OxyCODONE/APAP 5/325 [Percocet 5/325 MG] 1 each PO Q4HR PRN 7 Days #30 tablet PRN Reason: Moderate Pain Home Medications: Albuterol Sulfate [Ventolin Hfa] 2 puff IH Q4-6H PRN 02/19/15 [History] Cholecalciferol (Vitamin D3) [Vitamin D3] 6,000 unit PO DAILY 02/19/15 [History] Hydroxychloroquine [Plaquenuil] 200 mg PO BID 02/19/15 [History] Nitroglycerin 0.4 mg SL AD PRN 02/19/15 [History] Pantoprazole Sodium [Protonix] 40 mg PO DAILY 02/19/15 [History] Budesonide/Formoterol 160/4.5 [Symbicort 160/4.5] 2 puff IH BIDR 08/05/16 [History] Isosorbide MONOnitrate [Isosorbide Mononitrate ER] 15 mg PO QPM 10/24/18 [History] Losartan Potassium 50 mg PO DAILY 10/24/18 [History] Aspirin Enteric Coated [Aspirin EC] 81 mg PO DAILY 30 Days #30 tablet. 10/26/18 [Rx] Gabapentin [Neurontin] 100 mg PO TID 20 Days #60 capsule 10/26/18 [Rx] Amlodipine Besylate 2.5 mg PO DAILY 10/30/18 [History] Furosemide [Lasix] 40 mg PO PRN PRN 10/30/18 [History] Metoprolol Succinate [Toprol Xl] 50 mg PO DAILY 10/30/18 [History] Cefdinir [Omnicef] 300 mg PO BID #14 capsule 11/05/18 [Rx] Docusate [Colace] 100 mg PO BID PRN capsule 11/05/18 [Rx] Doxycycline 100 mg PO BID #14 capsule 11/05/18 [Rx] OxyCODONE/APAP 5/325 [Percocet 5/325 MG] 1 each PO Q4HR PRN 7 Days #30 tablet 11/05/18 [Rx] Allergies/Adverse Reactions: Allergy/AdvReac Type Severity Reaction Status Date / Time Penicillins [PCN] Allergy Hives Verified 10/30/18 13:26 Sulfa (Sulfonamide Allergy Hives Verified 10/30/18 13:26 Antibiotics) - Respiratory Orders Smoking Cessation: Smoking cessation has been advised. For more information, call the [place] Tobacco Quit Line at 9-632-WQLX-NOW. CERTIFICATION: I certify that the transfer of the above named patient to an Extended Care Facility is necessary for the continuing treatment of the diagnosis listed. The above information is true and accurate reflection of patient's current condition. Confidential - Redisclosure prohibited without a patient's written consent.
[2018-11-05 16:14] VITALS: BP 140/71
[2018-11-05] MEDS: Isosorbide MONOnitrate (24 HR) 30 MG TAB.ER.24H PO SCH (17:45)
[2018-11-05] MEDS: Metoprolol XL (24 HR) Succ 50 MG TAB.ER.24H PO SCH (17:45)
[2018-11-05] MEDS ORDERED: Ondansetron Oral Soln 2 MG/2.5 ML ORAL.SYG PO ONE (17:55)
[2018-11-05] MEDS ORDERED: Ondansetron ODT 4 MG TAB.RAPDIS PO ONE (18:45)
== END 2018-11-05 20:10 | DRG 178 ==
LOC: SUATTDRO 10:30 → 2ANU 10:30
PROVIDERS: ADMIT Internal Medicine; ATTEND Hospitalist

== ENCOUNTER 2018-12-02 16:09 | Inpatient (IN) ==
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
[2018-12-02 17:09] LABS: Bilirubin,Urine Negative (Negative); Blood,Urine Small (Negative); Clarity,Urine Cloudy (Clear); Color,Urine Yellow (Yellow); Glucose,Urine (UA) Normal (Normal); Ketones,Urine Negative (Negative); Leukocyte Esterase,Urine Large (Negative); Nitrite,Urine Negative (Negative); Protein,Urine Negative (Neg-Trace); Specific Gravity,Urine 1.008 (1.010-1.025); Urobilinogen,Urine Normal (Normal)
[2018-12-02 17:11] LABS: Bacteria,Urine Few per hpf (None-Few); Hyaline Casts,Urine None Seen per lpf (None-Few); RBC,Urine 0-3 per hpf (0-3); Squamous Epithelial Cell,Urine Moderate per lpf (None-Few); WBC,Urine TNTC per hpf (0-3)
[2018-12-02 17:23] LABS: Basophils % 0.2 %; Hemoglobin 11.1 g/dL (11.5-15.4); Immature Granulocytes % 0.6 % (0-4); Lymphocytes # 0.6 K/mcL (0.6-4.6); Lymphocytes % 3.7 %; Mean Corpuscular HGB Conc 31.7 g/dL (31.6-35.5); Mean Corpuscular Hemoglobin 29.1 pg (28.0-33.3); Mean Corpuscular Volume 91.6 fL (83.0-100.0); Monocytes # 1.7 K/mcL (0.0-1.3); Monocytes % 10.9 %; Neutrophils # 13.5 K/mcL (1.6-8.9); Platelet Count 174 K/mcL (140-400); Red Blood Count 3.82 M/mcL (3.82-4.97); Red Cell Distribution Width 14.3 % (11.5-14.5); Segmented Neutrophils % 84.6 %; White Blood Count 15.9 K/mcL (4.3-11.1)
[2018-12-02 17:29] LABS: INR 1.2; Prothrombin Time 14.1 Seconds (9.4-12.1)
[2018-12-02 17:32] LABS: Activated Partial Thrombo Time 30.3 Seconds (26.0-36.0)
[2018-12-02] MEDS ORDERED: Cefepime HCl 1,000 MG in 0.9 % Sodium Chloride Mini Bag 100 ML IVPB STA (17:32)
[2018-12-02] MEDS ORDERED: Azithromycin 500 MG in D5% in Water 250 ML IVPB ONE (17:32)
[2018-12-02 17:48] LABS: BUN/Creatinine Ratio 13 (6-26); Blood Urea Nitrogen 12 mg/dL (8-23); Calcium 8.7 mg/dL (8.6-10.3); Carbon Dioxide 24 mEq/L (23-29); Chloride 102 mEq/L (98-107); Glucose 109 mg/dL (70-105); Osmolality,Calculated 278 (280-300); Sodium 134 mEq/L (136-145); eGFR For African Americans > 60 (> 60); eGFR For Non-African Americans > 60 (> 60)
[2018-12-02 17:49] LABS: Troponin I < 0.03 ng/mL (< 0.04)
--- NOTE | 2018-12-02 18:00 | Emergency Department Note ---
Disposition Clinical Impression: HCAP (healthcare-associated pneumonia) Disposition: Admitted As Inpatient Condition: Good Referrals: Cheikh Duong MD [Primary Care Provider] - Forms: ED Satisfaction Letter Time of Disposition: 18:00 General Adult HPI - General Chief complaint: ED Trauma Stated complaint: shoulder pain/mulitple complaints Time Seen by Provider: 12/02/18 16:12 Source: patient, EMS Limitations: no limitations - History of Present Illness Pain Scale: 6 - Related Data Home Medications Medication Instructions Recorded Confirmed Albuterol Sulfate [Ventolin Hfa] 2 puff IH Q4-6H PRN 02/19/15 11/06/18 Cholecalciferol (Vitamin D3) 6,000 unit PO DAILY 02/19/15 11/06/18 [Vitamin D3] Hydroxychloroquine [Plaquenuil] 200 mg PO BID 02/19/15 11/06/18 Nitroglycerin 0.4 mg SL AD PRN 02/19/15 11/05/18 Pantoprazole Sodium [Protonix] 40 mg PO DAILY 02/19/15 11/05/18 Budesonide/Formoterol 160/4.5 2 puff IH BIDR 08/05/16 11/06/18 [Symbicort 160/4.5] Isosorbide MONOnitrate [Isosorbide 15 mg PO QPM 10/24/18 11/05/18 Mononitrate ER] Losartan Potassium 50 mg PO DAILY 10/24/18 11/05/18 Amlodipine Besylate 2.5 mg PO DAILY 10/30/18 11/06/18 Furosemide [Lasix] 40 mg PO PRN PRN 10/30/18 11/06/18 Metoprolol Succinate [Toprol Xl] 50 mg PO DAILY 10/30/18 11/05/18 Previous Rx's Medication Instructions Recorded Docusate [Colace] 100 mg PO BID PRN capsule 11/05/18 Allergies Allergy/AdvReac Type Severity Reaction Status Date / Time Penicillins [PCN] Allergy Hives Verified 10/30/18 13:26 Sulfa (Sulfonamide Allergy Hives Verified 10/30/18 13:26 Antibiotics) Past Medical History - Past Medical History Medical history: Reports: asthma, coronary artery disease, DVT, myocardial infarction, pulmonary embolus Surgical history: Reports: other Psychiatric history: Reports: anxiety, depression - Social History Smoking Status: Never smoker Smokeless Tobacco Status: No Alcohol use: Reports: none Drug use: Reports: none Physical Exam - General Limitations: no limitations General appearance: alert, in no apparent distress Course Vital Signs Temperature 99.7 F H 12/02/18 16:14 Pulse Rate 109 12/02/18 16:14 Respiratory Rate 20 12/02/18 16:14 Blood Pressure 141/68 12/02/18 16:14 O2 Sat by Pulse Oximetry 95 12/02/18 16:14 Temperature 99.7 F H 12/02/18 16:14 Pulse Rate 109 12/02/18 16:14 Respiratory Rate 20 12/02/18 16:14 Blood Pressure 141/68 12/02/18 16:14 O2 Sat by Pulse Oximetry 95 12/02/18 16:14 Oxygen Delivery Oxygen Delivery Nasal Cannula Medical Decision Making - Lab Data Result diagrams: 12/02/18 17:01 12/02/18 17:01 Lab Results 12/02/18 12/02/18 12/02/18 Range/Units 16:55 17:01 17:01 WBC 15.9 H (4.3-11.1) K/mcL RBC 3.82 (3.82-4.97) M/mcL Hgb 11.1 L (11.5-15.4) g/dL Hct 35.0 L (35.3-44.9) % MCV 91.6 (83.0-100.0) fL MCH 29.1 (28.0-33.3) pg MCHC 31.7 (31.6-35.5) g/dL RDW 14.3 (11.5-14.5) % Plt Count 174 (140-400) K/mcL MPV 12.0 (9.4-12.4) fL Immature Gran % 0.6 (0-4) % Seg Neutrophils % 84.6 % Lymphocytes % 3.7 % Monocytes % 10.9 % Eosinophils % 0.0 % Basophils % 0.2 % Neutrophils # 13.5 H (1.6-8.9) K/mcL Lymphocytes # 0.6 (0.6-4.6) K/mcL Monocytes # 1.7 H (0.0-1.3) K/mcL Eosinophils # 0.0 (0.0-0.6) K/mcL Basophils # 0.0 (0.0-0.2) K/mcL PT 14.1 H (9.4-12.1) Seconds INR 1.2 APTT 30.3 (26.0-36.0) Seconds Sodium (136-145) mEq/L Potassium (3.5-5.1) mEq/L Chloride (98-107) mEq/L Carbon Dioxide (23-29) mEq/L BUN (8-23) mg/dL Creatinine (0.60-1.20) mg/dL Est GFR ( Amer) (> 60) Est GFR (Non-Af Amer) (> 60) BUN/Creatinine Ratio (6-26) Glucose (70-105) mg/dL Calculated Osmolality (280-300) Calcium (8.6-10.3) mg/dL Troponin I (< 0.04) ng/mL Urine Color Yellow (Yellow) Urine Clarity Cloudy A (Clear) Urine pH 6.0 (5.0-8.0) pH Units Ur Specific [place] 1.008 L (1.010-1.025) Urine Protein Negative (Neg-Trace) mg/dL Urine Glucose (UA) Normal (Normal) mg/dL Urine Ketones Negative (Negative) mg/dL Urine Blood Small H (Negative) Urine Nitrite Negative (Negative) Urine Bilirubin Negative (Negative) Urine Urobilinogen Normal (Normal) mg/dL Ur Leukocyte Esterase Large H (Negative) Urine Microscopic RBC 0-3 (0-3) per hpf Urine Microscopic WBC TNTC H (0-3) per hpf Ur Squamous Epith Cells Moderate H (None-Few) per lpf Urine Bacteria Few (None-Few) per hpf Hyaline Casts None Seen (None-Few) per lpf Ur Culture Indicated? YES A (NO) 12/02/18 Range/Units 17:01 WBC (4.3-11.1) K/mcL RBC (3.82-4.97) M/mcL Hgb (11.5-15.4) g/dL Hct (35.3-44.9) % MCV (83.0-100.0) fL MCH (28.0-33.3) pg MCHC (31.6-35.5) g/dL RDW (11.5-14.5) % Plt Count (140-400) K/mcL MPV (9.4-12.4) fL Immature Gran % (0-4) % Seg Neutrophils % % Lymphocytes % % Monocytes % % Eosinophils % % Basophils % % Neutrophils # (1.6-8.9) K/mcL Lymphocytes # (0.6-4.6) K/mcL Monocytes # (0.0-1.3) K/mcL Eosinophils # (0.0-0.6) K/mcL Basophils # (0.0-0.2) K/mcL PT (9.4-12.1) Seconds INR APTT (26.0-36.0) Seconds Sodium 134 L (136-145) mEq/L Potassium 4.0 (3.5-5.1) mEq/L Chloride 102 (98-107) mEq/L Carbon Dioxide 24 (23-29) mEq/L BUN 12 (8-23) mg/dL Creatinine 0.92 (0.60-1.20) mg/dL Est GFR ( Amer) > 60 (> 60) Est GFR (Non-Af Amer) > 60 (> 60) BUN/Creatinine Ratio 13 (6-26) Glucose 109 H (70-105) mg/dL Calculated Osmolality 278 L (280-300) Calcium 8.7 (8.6-10.3) mg/dL Troponin I < 0.03 (< 0.04) ng/mL Urine Color (Yellow) Urine Clarity (Clear) Urine pH (5.0-8.0) pH Units Ur Specific [place] (1.010-1.025) Urine Protein (Neg-Trace) mg/dL Urine Glucose (UA) (Normal) mg/dL Urine Ketones (Negative) mg/dL Urine Blood (Negative) Urine Nitrite (Negative) Urine Bilirubin (Negative) Urine Urobilinogen (Normal) mg/dL Ur Leukocyte Esterase (Negative) Urine Microscopic RBC (0-3) per hpf Urine Microscopic WBC (0-3) per hpf Ur Squamous Epith Cells (None-Few) per lpf Urine Bacteria (None-Few) per hpf Hyaline Casts (None-Few) per lpf Ur Culture Indicated? (NO) Attestation Statement - Attestation Attestation: I reviewed the residents documentation and agree with the residents assessment and plan of care. I have personally had face to face time with the patient. 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 Julio apepars to have new pneumonia and then concern is for HCAP. We will start ABx therapy now. lactic acid is pending and will do IVF. Julio sam be admitted to [facility].
[2018-12-02] MEDS ORDERED: Ondansetron 4 MG/2 ML VIAL IVP ONE (19:14)
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
[2018-12-02] MEDS ORDERED: Naloxone 0.4 MG/ML INJ IVP PRN (21:34)
[2018-12-02] MEDS ORDERED: Ondansetron 4 MG/2 ML VIAL IVP PRN (21:34)
[2018-12-03] MEDS ORDERED: Vancomycin (wt based) 1,000 MG VIAL IVPB SCH (01:00)
[2018-12-03] MEDS: *HR* HYDROcodone/Acet 5/325 mg TABLET PO PRN ×2 (04:38→16:44)
[2018-12-03 05:07] LABS: Bilirubin,Urine Negative (Negative); Blood,Urine Trace (Negative); Clarity,Urine Clear (Clear); Color,Urine Yellow (Yellow); Glucose,Urine (UA) Normal (Normal); Ketones,Urine Negative (Negative); Leukocyte Esterase,Urine Moderate (Negative); Nitrite,Urine Negative (Negative); PH,Urine 5.5 pH Units (5.0-8.0); Protein,Urine Negative (Neg-Trace); Specific Gravity,Urine 1.011 (1.010-1.025); Urobilinogen,Urine Normal (Normal)
[2018-12-03 05:10] LABS: Bacteria,Urine None Seen per hpf (None-Few); Hyaline Casts,Urine None Seen per lpf (None-Few); RBC,Urine 0-3 per hpf (0-3); Squamous Epithelial Cell,Urine Many per lpf (None-Few); WBC,Urine 15-30 per hpf (0-3)
[2018-12-03] MEDS ORDERED: Nitroglycerin 0.4 MG TAB.SUBL SL PRN (06:01)
[2018-12-03] MEDS ORDERED: Furosemide 40 MG TABLET PO PRN (06:01)
[2018-12-03 06:33] LABS: Basophils % 0.3 %; Eosinophils # 0.1 K/mcL (0.0-0.6); Eosinophils % 0.4 %; Hematocrit 35.5 % (35.3-44.9); Hemoglobin 10.9 g/dL (11.5-15.4); Immature Granulocytes % 0.4 % (0-4); Lymphocytes # 0.8 K/mcL (0.6-4.6); Lymphocytes % 6.5 %; Mean Corpuscular HGB Conc 30.7 g/dL (31.6-35.5); Mean Corpuscular Hemoglobin 28.1 pg (28.0-33.3); Mean Corpuscular Volume 91.5 fL (83.0-100.0); Mean Platelet Volume 12.1 fL (9.4-12.4); Monocytes # 1.4 K/mcL (0.0-1.3); Monocytes % 11.1 %; Neutrophils # 10.5 K/mcL (1.6-8.9); Platelet Count 168 K/mcL (140-400); Red Blood Count 3.88 M/mcL (3.82-4.97); Red Cell Distribution Width 14.3 % (11.5-14.5); Segmented Neutrophils % 81.3 %; White Blood Count 12.9 K/mcL (4.3-11.1)
[2018-12-03 06:41] LABS: INR 1.2; Prothrombin Time 14.1 Seconds (9.4-12.1)
[2018-12-03 06:43] LABS: Activated Partial Thrombo Time 31.1 Seconds (26.0-36.0)
[2018-12-03 06:56] LABS: Alanine Aminotransferase 8 Units/L (7-52); Albumin 3.2 g/dL (3.5-5.7); Albumin/Globulin Ratio 1.1 (1.1-2.2); Alkaline Phosphatase 39 Units/L (34-104); Aspartate Amino Transferase 11 Units/L (13-39); BUN/Creatinine Ratio 12 (6-26); Bilirubin,Total 0.4 mg/dL (0.3-1.0); Blood Urea Nitrogen 10 mg/dL (8-23); Calcium 8.7 mg/dL (8.6-10.3); Carbon Dioxide 24 mEq/L (23-29); Chloride 103 mEq/L (98-107); Chol/HDL Ratio 3.5 (0-4.9); Cholesterol 133 mg/dL (< 200); Glucose 109 mg/dL (70-105); HDL Cholesterol 38 mg/dL (40-59); LDL Cholesterol,Calculated 82 mg/dL (0-99); Osmolality,Calculated 286 (280-300); Phosphorous 3.5 mg/dL (2.7-4.5); Sodium 138 mEq/L (136-145); Total Protein 6.2 g/dL (6.4-8.9); Triglycerides 63 mg/dL (< 150); eGFR For African Americans > 60 (> 60); eGFR For Non-African Americans > 60 (> 60)
[2018-12-03] MEDS ORDERED: Azithromycin 500 MG in D5% in Water 250 ML IVPB SCH ×2 (09:00→18:00)
[2018-12-03] MEDS ORDERED: Metoprolol XL (24 HR) Succ 50 MG TAB.ER.24H PO SCH (09:00)
[2018-12-03] MEDS: amLODIPine 5 MG TABLET PO SCH (09:25)
[2018-12-03] MEDS: Cefepime HCl 2,000 MG in Water for inj. (sterile) 20 ML IVP SCH ×3 (09:26→23:50)
[2018-12-03] MEDS: Cholecalciferol (D-3) 1,000 UNIT (25MCG) TABLET PO SCH (09:26)
[2018-12-03] MEDS: Budesonide/Formoterol 160/4.5 1 PUFF INH IH SCH ×2 (11:04→19:46)
--- NOTE | 2018-12-03 14:38 | Electrocardiograph Report ---
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
--- NOTE | 2018-12-03 15:27 | Internal Med Progress Note ---
Hospitalist Progress Note - Encounter Date of Encounter: 12/03/18 Time of Encounter: 10:00 - Subjective Interval History: No major events overnight. Patient was seen this a.m. He denied fever, chills or night sweats. He has no nausea, vomiting or abdominal pain. Patient denied chest pain, shortness of breath or palpitation. She complained about left arm pain after IV antibiotic infusion which relieved 30 minutes after the infusion. There was no erythema, swelling or warmth noted. - Exam Vitals: Temp Pulse Resp BP Pulse Ox 98.9 F 96 16 142/82 96 12/03/18 11:23 12/03/18 11:23 12/03/18 11:23 12/03/18 11:23 12/03/18 11:23 Exam: ` General: Patient is alert, oriented 3. Head: Atraumatic, normal inspection, normocephalic. Eye: EOMI, PERRLA, no scleral icterus noted. ENT: Mucous membranes moist. No odontogenic infection noted. Neck: Normal inspection, no meningismus. Respiratory: RLL crackles Cardiovascular: Regular rate and regular rhythm, S1 and S2 audible. No murmurs, rubs, or gallops. GI: Soft, nondistended, normal bowel sounds. Extremities:right big toe dry gangrene, +1 dorsalis pedis pulses in the RLE and +2 in the LLE Neurological: Alert, oriented 3, no focal deficits. Psychiatric: normal affect, normal mood. Skin: Dry, intact, warm. Normal color. No rashes. - Assessment and Plan (1) Pneumonia Current Visit: Yes Status: Acute (2) HTN (hypertension) Current Visit: Yes Status: Chronic (3) Hyperlipidemia Current Visit: Yes Status: Chronic (4) SLE (systemic lupus erythematosus) Current Visit: No Status: Chronic (5) Peripheral vascular disease Current Visit: Yes Status: Acute (6) Ischemic pain of right foot Current Visit: Yes Status: Chronic (7) Afib Current Visit: Yes Status: Chronic (8) History of subarachnoid hemorrhage Current Visit: No Status: Resolved (9) Adjustment disorder with anxiety Current Visit: No Status: Acute (10) DVT (deep venous thrombosis) Current Visit: No Status: Acute (11) CAD (coronary artery disease) Current Visit: No Status: Chronic - Summary of Assessment and Plan Summary of Assessment and Plan: 68-year-old female with history of SLE, DVT, PE, PVD, DM, HTN, CAD status post PCI, ICH who came into the hospital with weakness. Patient's reported generalized weakness for almost a week with dysuria. Her symptoms and manage as following: HAP: - CXR revealed worsening airspace disease in the right lung base compatible with pneumonia and small pleural effusion. - Blood cultures are pending, MRSA swab is pending. - Currently on cefepime, RENALLY Dosed vancomycin and azithromycin. - She is afebrile, hemodynamically stable, leukocytosis improved. Was on 3 L of oxygen, now on room air. - Check CBC tomorrow UTI with hematuria: - UA is positive for blood, leukocyte esterase, WBC counts. - Patient had dysuria before presentation and generalized weakness. - Urine cultures are pending. Continue antibiotics as above. History of intracranial bleed: - Was cleared previously by Neurology service to use aspirin. - CT head was negative for bleeding on aspirin. Right big toe foot gangrene: - I called vascular surgery Dr. Fry, patient is going to follow-up with him next Monday. - No procedure is planned from his standpoint until he sees the patient. - Neurology clearance will be required before any kind of surgery given her ICH in the past. She received outpatient neurologist on January 05. - I discussed with him personally and he does not feel like she needs inpatient neurology consult. d/w patient. Troponin elevation: - Likely type II event in light of her infection and PNA. - EKG without ischemic changes. - Patient felt left arm pain after Abx infusion that resolved with abx withdrawal, no chest pain reported. - Will check another troponin at 05:00 pm. Hx of SLE and multiple blood clots (DVT/PE) s/p IVC placement on 10/31: - reviewed hematology notes as outpatient. Unable to put back on AC before neurology clearance as she is high risk of bleeding. - Continue Plaquenil CAD s/p CABG: - continue aspirin, losartan, beta blockers HTN: - Continue home medication dvt PPX : scd I reviewed independently all laboratory workup, pertinent images including x- rays and CT scans. I also reviewed independently and EKGs and my findings are in the body of my assessment and plan. I ordered the laboratory workup and images myself. I discussed finding with patient's, their families, RN's and consultants involved in the care of the patient. - Time Spent with Patient Total time spent is greater than 50% in coordination of care (as documented) at patient's floor/unit and/or counseling patient: Plan of Care Discussed with: patient Internal Medicine: Result - Labs CBC & Chem 7: 12/03/18 05:44 12/03/18 05:44 Labs: Short CBC 12/02/18 12/03/18 Range/Units 17:01 05:44 WBC 15.9 H 12.9 H (4.3-11.1) K/mcL Hgb 11.1 L 10.9 L (11.5-15.4) g/dL Hct 35.0 L 35.5 (35.3-44.9) % Plt Count 174 168 (140-400) K/mcL Neutrophils # 13.5 H 10.5 H (1.6-8.9) K/mcL BMP 12/02/18 12/03/18 17:01 05:44 Sodium 134 L 138 Potassium 4.0 4.0 Chloride 102 103 Carbon Dioxide 24 24 BUN 12 10 Creatinine 0.92 0.81 Glucose 109 H 109 H Calcium 8.7 8.7 Cardiac Enzymes 12/02/18 12/03/18 Range/Units 17:01 11:30 Troponin I < 0.03 0.04 H* (< 0.04) ng/mL Liver Function 12/03/18 Range/Units 05:44 Total Bilirubin 0.4 (0.3-1.0) mg/dL AST 11 L (13-39) Units/L ALT 8 (7-52) Units/L Alkaline Phosphatase 39 (34-104) Units/L Albumin 3.2 L (3.5-5.7) g/dL Urine 12/02/18 12/03/18 Range/Units 16:55 04:30 Urine Color Yellow Yellow (Yellow) Urine Clarity Cloudy A Clear (Clear) Urine pH 6.0 5.5 (5.0-8.0) pH Units Ur Specific [place] 1.008 L 1.011 (1.010-1.025) Urine Protein Negative Negative (Neg-Trace) mg/dL Urine Glucose (UA) Normal Normal (Normal) mg/dL - ABG Interpretation ABG results: PT/INR, D-dimer PT 14.1 Seconds (9.4-12.1) H 12/03/18 05:44 - Impressions Impressions Chest X-Ray 12/02/18 16:20 IMPRESSION: Worsening airspace disease right lung base compatible with pneumonia with small pleural effusions. D/ / 12/02/2018 17:29:56 Jacobo Talley MD / lionel Interpreting Provider: Jacobo Talley MD Head CT 12/03/18 12:00 IMPRESSION: No acute intracranial abnormality. D/ / 12/03/2018 12:32:22 Jacobo Talley MD / lionel Interpreting Provider: Jacobo Talley MD Consult Discharge Plan - Plan Referrals: Cheikh Duong MD [Primary Care Provider] - (1) Pneumonia Qualifiers: Pneumonia type: due to methicillin-resistant Staphylococcus aureus (MRSA) Laterality: bilateral Lung location: unspecified part of lung Qualified Code(s): J15.212 - Pneumonia due to Methicillin resistant Staphylococcus aureus (2) HTN (hypertension) Qualifiers: Hypertension type: essential hypertension Qualified Code(s): I10 - Essential (primary) hypertension (3) Hyperlipidemia Qualifiers: Hyperlipidemia type: unspecified Qualified Code(s): E78.5 - Hyperlipidemia, unspecified (4) SLE (systemic lupus erythematosus) Qualifiers: Systemic lupus erythematosus type: other Systemic lupus erythematosus organ involvement: lung involvement Qualified Code(s): M32.13 - Lung involvement in systemic lupus erythematosus (7) Afib Qualifiers: Atrial fibrillation type: chronic Qualified Code(s): I48.2 - Chronic atrial fibrillation (10) DVT (deep venous thrombosis) Qualifiers: DVT location: lower extremity Affected thrombotic vein of extremity: popliteal Chronicity: unspecified Laterality: right Qualified Code(s): I82.431 - Acute embolism and thrombosis of right popliteal vein (11) CAD (coronary artery disease) Qualifiers: Coronary Disease-Associated Artery/Lesion type: lummi artery [place] vs. tr ansplanted heart: lummi heart Associated angina: without angina Qualified Code(s): I25.10 - Atherosclerotic heart disease of lummi coronary artery without angina pectoris
[2018-12-03] MEDS: Isosorbide MONOnitrate (24 HR) 30 MG TAB.ER.24H PO SCH (17:53)
[2018-12-03] MEDS: Metoprolol XL (24 HR) Succ 50 MG TAB.ER.24H PO SCH (17:53)
[2018-12-03] MEDS: Gabapentin 400 MG CAPSULE PO SCH (20:21)
[2018-12-04] MEDS: *HR* HYDROcodone/Acet 5/325 mg TABLET PO PRN ×2 (00:08→06:48)
[2018-12-04 00:50] LABS: Hematocrit 30.8 % (35.3-44.9); Hemoglobin 9.6 g/dL (11.5-15.4); Mean Corpuscular HGB Conc 31.2 g/dL (31.6-35.5); Mean Corpuscular Hemoglobin 28.5 pg (28.0-33.3); Mean Corpuscular Volume 91.4 fL (83.0-100.0); Mean Platelet Volume 11.9 fL (9.4-12.4); Platelet Count 165 K/mcL (140-400); Red Blood Count 3.37 M/mcL (3.82-4.97); Red Cell Distribution Width 14.2 % (11.5-14.5); White Blood Count 9.8 K/mcL (4.3-11.1)
[2018-12-04 01:12] LABS: BUN/Creatinine Ratio 13 (6-26); Blood Urea Nitrogen 10 mg/dL (8-23); Calcium 8.3 mg/dL (8.6-10.3); Carbon Dioxide 24 mEq/L (23-29); Chloride 105 mEq/L (98-107); Glucose 108 mg/dL (70-105); Osmolality,Calculated 286 (280-300); Potassium 3.8 mEq/L (3.5-5.1); Sodium 138 mEq/L (136-145); eGFR For African Americans > 60 (> 60); eGFR For Non-African Americans > 60 (> 60)
[2018-12-04] MEDS: Budesonide/Formoterol 160/4.5 1 PUFF INH IH SCH ×2 (07:51→19:56)
[2018-12-04] MEDS ORDERED: Aminoglycoside Consult 1 EACH MC ONE (07:54)
[2018-12-04] MEDS: Cholecalciferol (D-3) 1,000 UNIT (25MCG) TABLET PO SCH (08:04)
[2018-12-04] MEDS: amLODIPine 5 MG TABLET PO SCH (08:05)
[2018-12-04] MEDS: Aspirin 81 MG TAB.CHEW PO SCH (08:05)
[2018-12-04] MEDS: Cefepime HCl 2,000 MG in Water for inj. (sterile) 20 ML IVP SCH ×3 (08:05→18:22)
[2018-12-04] MEDS: Gabapentin 400 MG CAPSULE PO SCH ×3 (08:05→20:46)
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
[2018-12-04] MEDS ORDERED: Azithromycin 250 MG TABLET PO SCH (09:00)
--- NOTE | 2018-12-04 12:13 | Internal Med Progress Note ---
Hospitalist Progress Note - Encounter Date of Encounter: 12/04/18 Time of Encounter: 09:00 - Subjective Interval History: No major events overnight. Patient was seen this a.m. sHe denied fever, chills or night sweats. sHe has no nausea, vomiting or abdominal pain. Patient denied chest pain, shortness of breath or palpitation. She feels generally well compared to yesterday. - Exam Vitals: Temp Pulse Resp BP Pulse Ox 97.9 F 85 16 146/71 98 12/04/18 08:04 12/04/18 08:04 12/04/18 08:04 12/04/18 08:04 12/04/18 08:04 Exam: ` General: Patient is alert, oriented 3. Head: Atraumatic, normal inspection, normocephalic. Eye: EOMI, PERRLA, no scleral icterus noted. ENT: Mucous membranes moist. No odontogenic infection noted. Neck: Normal inspection, no meningismus. Respiratory: RLL crackles Cardiovascular: Regular rate and regular rhythm, S1 and S2 audible. No murmurs, rubs, or gallops. GI: Soft, nondistended, normal bowel sounds. Extremities:right big toe dry gangrene, +1 dorsalis pedis pulses in the RLE and +2 in the LLE Neurological: Alert, oriented 3, no focal deficits. Psychiatric: normal affect, normal mood. Skin: Dry, intact, warm. Normal color. No rashes. - Assessment and Plan (1) Sepsis Current Visit: Yes Status: Acute (2) Pneumonia Current Visit: Yes Status: Acute (3) HTN (hypertension) Current Visit: Yes Status: Chronic (4) Hyperlipidemia Current Visit: Yes Status: Chronic (5) SLE (systemic lupus erythematosus) Current Visit: No Status: Chronic (6) Peripheral vascular disease Current Visit: Yes Status: Acute (7) Ischemic pain of right foot Current Visit: Yes Status: Chronic (8) Afib Current Visit: Yes Status: Chronic (9) History of subarachnoid hemorrhage Current Visit: No Status: Resolved (10) Adjustment disorder with anxiety Current Visit: No Status: Acute (11) DVT (deep venous thrombosis) Current Visit: No Status: Acute (12) CAD (coronary artery disease) Current Visit: No Status: Chronic - Summary of Assessment and Plan Summary of Assessment and Plan: 68-year-old female with history of SLE, DVT, PE, PVD, DM, HTN, CAD status post PCI, ICH who came into the hospital with weakness. Patient's reported generalized weakness for almost a week with dysuria. Her symptoms and manage as following: Sepsis: - Met 2/4 criteria at presentation. Source likely pneumonia and UTI. - Her leukocytosis resolved and her tachycardia improved. HAP: - CXR revealed worsening airspace disease in the right lung base compatible with pneumonia and small pleural effusion. - Blood cultures are pending, MRSA swab is -. - Currently on cefepime and azithromycin day 3 , DC vancomycin. - She is afebrile, hemodynamically stable, leukocytosis resolved. Was on 3 L of oxygen, now on room air. - Check CBC tomorrow UTI with hematuria: - UA is positive for blood, leukocyte esterase, WBC counts. UC is growing GNR, hX of ESBL and VRE in the past. - Discussed with ID, Continue antibiotics as above. Anemia: - Hemoglobin is 9.6 from 11.1 at presentation - Check ferritin, iron profile, TSH, B12, folic acid. We will also get occult blood. History of intracranial bleed: - Was cleared previously by Neurology service to use aspirin. - CT head was negative for bleeding on aspirin. - Continue aspirin Right big toe foot gangrene: - I called vascular surgery Dr. Fry, patient is going to follow-up with him next Monday. - No procedure is planned from his standpoint until he sees the patient. - Neurology clearance will be required before any kind of surgery given her ICH in the past. She received outpatient neurologist on January 05. - I discussed with him personally and he does not feel like she needs inpatient neurology consult. d/w patient. Troponin elevation: - Likely type II event in light of her infection and PNA. - EKG without ischemic changes. Patient is asymptomatic. Hx of SLE and multiple blood clots (DVT/PE) s/p IVC placement on 10/31: - reviewed hematology notes as outpatient. Unable to put back on AC before neurology clearance as she is high risk of bleeding. - Continue Plaquenil CAD s/p CABG: - continue aspirin, losartan, beta blockers HTN: - Continue home medication DVT prophylaxis SCD I reviewed independently all laboratory workup, pertinent images including x- rays and CT scans. I also reviewed independently and EKGs and my findings are in the body of my assessment and plan. I ordered the laboratory workup and images myself. I discussed finding with patient's, their families, RN's and consultants involved in the care of the patient. - Time Spent with Patient Total time spent is greater than 50% in coordination of care (as documented) at patient's floor/unit and/or counseling patient: Plan of Care Discussed with: patient Internal Medicine: Result - Labs CBC & Chem 7: 12/04/18 00:38 12/04/18 00:38 Labs: Short CBC 12/04/18 Range/Units 00:38 WBC 9.8 (4.3-11.1) K/mcL Hgb 9.6 L (11.5-15.4) g/dL Hct 30.8 L (35.3-44.9) % Plt Count 165 (140-400) K/mcL BMP 12/04/18 00:38 Sodium 138 Potassium 3.8 Chloride 105 Carbon Dioxide 24 BUN 10 Creatinine 0.79 Glucose 108 H Calcium 8.3 L Cardiac Enzymes 12/03/18 12/03/18 Range/Units 11:30 16:53 Troponin I 0.04 H* < 0.03 (< 0.04) ng/mL - ABG Interpretation ABG results: PT/INR, D-dimer PT 14.1 Seconds (9.4-12.1) H 12/03/18 05:44 - Impressions Impressions Head CT 12/03/18 12:00 IMPRESSION: No acute intracranial abnormality. D/ / 12/03/2018 12:32:22 Jacobo Talley MD / lionel Interpreting Provider: Jacobo Talley MD Consult Discharge Plan - Plan Referrals: Cheikh Duong MD [Primary Care Provider] - (1) Sepsis Qualifiers: Sepsis type: sepsis due to unspecified organism Qualified Code(s): A41.9 - Sepsis, unspecified organism (2) Pneumonia Qualifiers: Pneumonia type: due to methicillin-resistant Staphylococcus aureus (MRSA) Laterality: bilateral Lung location: unspecified part of lung Qualified Code(s): J15.212 - Pneumonia due to Methicillin resistant Staphylococcus aureus (3) HTN (hypertension) Qualifiers: Hypertension type: essential hypertension Qualified Code(s): I10 - Essential (primary) hypertension (4) Hyperlipidemia Qualifiers: Hyperlipidemia type: unspecified Qualified Code(s): E78.5 - Hyperlipidemia, unspecified (5) SLE (systemic lupus erythematosus) Qualifiers: Systemic lupus erythematosus type: other Systemic lupus erythematosus organ involvement: lung involvement Qualified Code(s): M32.13 - Lung involvement in systemic lupus erythematosus (8) Afib Qualifiers: Atrial fibrillation type: chronic Qualified Code(s): I48.2 - Chronic atrial fibrillation (11) DVT (deep venous thrombosis) Qualifiers: DVT location: lower extremity Affected thrombotic vein of extremity: popliteal Chronicity: unspecified Laterality: right Qualified Code(s): I82.431 - Acute embolism and thrombosis of right popliteal vein (12) CAD (coronary artery disease) Qualifiers: Coronary Disease-Associated Artery/Lesion type: [place] artery [place] vs. transplanted heart: [place] heart Associated angina: without angina Qualified Code(s): I25.10 - Atherosclerotic heart disease of [place] coronary artery witho ut angina pectoris
--- NOTE | 2018-12-04 14:02 | Electrocardiograph Report ---
[facility] Test Date: 2018-12-02 Pat Name: Angela Crowley Department: EXAM2 Room: 2A38 Gender: [employer] Representative: : [id number] Requested By: Bruce Em Order Number: [id number] Reading MD: Shiv Mitchell Measurements Intervals [employer] Rate: 98 P: 40 SC: 141 QRS: 27 QRSD: 84 T: 18 QT: 340 QTc: 435 Interpretive Statements Sinus rhythm wnl Electronically Signed On 12-04-2018 14:00:25 EDT by Shiv Mitchell
[2018-12-04] MEDS: metroNIDAZOLE 500 MG TABLET PO SCH ×2 (16:00→20:45)
[2018-12-04] MEDS: Metoprolol XL (24 HR) Succ 50 MG TAB.ER.24H PO SCH (17:18)
[2018-12-04] MEDS: Isosorbide MONOnitrate (24 HR) 30 MG TAB.ER.24H PO SCH (17:18)
[2018-12-05] MEDS ORDERED: Cefepime HCl 2,000 MG in Water for inj. (sterile) 20 ML IVP SCH (05:00)
[2018-12-05 06:28] LABS: Hematocrit 33.3 % (35.3-44.9); Hemoglobin 10.1 g/dL (11.5-15.4); Mean Corpuscular HGB Conc 30.3 g/dL (31.6-35.5); Mean Corpuscular Hemoglobin 28.1 pg (28.0-33.3); Mean Corpuscular Volume 92.8 fL (83.0-100.0); Mean Platelet Volume 12.2 fL (9.4-12.4); Platelet Count 198 K/mcL (140-400); Red Blood Count 3.59 M/mcL (3.82-4.97); Red Cell Distribution Width 14.1 % (11.5-14.5); White Blood Count 8.7 K/mcL (4.3-11.1)
[2018-12-05 07:00] LABS: Thyroid Stimulating Hormone 1.311 mcIU/mL (0.340-5.600)
[2018-12-05 07:10] LABS: Folate 11.4 ng/mL (3.0-16.0)
[2018-12-05] MEDS: Budesonide/Formoterol 160/4.5 1 PUFF INH IH SCH ×2 (07:46→21:38)
[2018-12-05] MEDS: metroNIDAZOLE 500 MG TABLET PO SCH (07:48)
[2018-12-05] MEDS: Aspirin 81 MG TAB.CHEW PO SCH (07:48)
[2018-12-05] MEDS: Cholecalciferol (D-3) 1,000 UNIT (25MCG) TABLET PO SCH (07:48)
[2018-12-05] MEDS: amLODIPine 5 MG TABLET PO SCH (07:48)
[2018-12-05] MEDS: Gabapentin 400 MG CAPSULE PO SCH ×3 (07:49→21:04)
[2018-12-05] MEDS: *HR* HYDROcodone/Acet 5/325 mg TABLET PO PRN (07:49)
--- NOTE | 2018-12-05 09:25 | Infectious Disease Progress No ---
ID Progress Note Date of Encounter: 12/05/18 Time of Encounter: 09:23 - Subjective Subjective: Patient seen and examined. No acute events noted overnight. Patient states she feels better today. Denies fevers, chills, or rigors. Denies chest pain or shortness of breath or cough. Denies nausea, vomiting, diarrhea, or constipation. Last BM this morning was soft. Denies abdominal pain. States urinary urinary urgency is better. Denies dysuria. Complains of pain to the right upper back that is worse with certain movements or cough and pain in the right foot. States appetite is better. Denies oral thrush or rashes. - Objective CBC & Chem 7: 12/06/18 04:17 12/06/18 04:17 - Exam Vitals: Temp Pulse Resp BP Pulse Ox 98.5 F 76 18 113/62 97 12/05/18 07:21 12/05/18 07:21 12/05/18 07:46 12/05/18 07:21 12/05/18 07:46 Exam: Head: Atraumatic, normal inspection, normocephalic. Eye: EOMI, PERRLA, no scleral icterus noted. ENT: Mucous membranes moist. No odontogenic infection noted. Neck: Normal inspection, no meningismus. Respiratory: Clear to auscultation. No rales, respiratory distress, rhonchi, or wheezes noted. Cardiovascular: Regular rate and rhythm, S1 and S2 audible. No murmurs, rubs, or gallops. GI: Soft, obese, normal bowel sounds. Extremities:No joint swelling, pedal edema, or tenderness noted. Necrosis noted to the distal aspect of the right great toe and right 2nd toe wound bed. No erythema, warmth, open lesion, or drainage. Back: Normal inspection. No vertebral tenderness noted. No CVAT noted. Neurological: Alert, oriented 3, no focal deficits. Psychiatric: normal affect, normal mood. Skin: Dry, intact, warm. Normal color. No rashes. - Assessment and Plan (1) Sepsis Current Visit: Yes Status: Resolved The patient had 2 sepsis criteria on admission. Likely secondary to pneumonia and urinary tract infection. Improved. Leukocytosis and tachycardia have resolved. She has been afebrile. Blood cultures drawn 12/02/18 are no growth to date 2 sets. Qualifiers: Sepsis type: sepsis due to unspecified organism Qualified Code(s): A41.9 - Sepsis, unspecified organism SNOMED Code(s): 08424545 (2) Pneumonia Current Visit: Yes Status: Acute Location: Right lung base. Causative organism: Unclear. Chest x-ray showed worsening airspace disease in the right lung base consistent with pneumonia and small bilateral pleural effusions. MRSA nasal screen was negative. Legionella urinary antigen was negative. S. pneumo UAT negative. Aspiration is on the differential since the patient states she chokes when she eats and she recently had ICH. MANUFACTURING TECHNOLOGY ANALYST evaluation pending. Currently on cefepime and flagyl. Qualifiers: Pneumonia type: due to methicillin-resistant Staphylococcus aureus (MRSA) Laterality: bilateral Lung location: unspecified part of lung Qualified Code(s): J15.212 - Pneumonia due to Methicillin resistant Staphylococcus aureus SNOMED Code(s): 988979178 (3) UTI (urinary tract infection) Current Visit: Yes Status: Acute Causative organism: Unclear. Previous urine culture 11/14/18 was positive for VRE. Urine culture is positive for E. coli. Currently on cefepime. Qualifiers: Urinary tract infection type: acute cystitis Hematuria presence: without hematuria Qualified Code(s): N30.00 - Acute cystitis without hematuria SNOMED Code(s): 39622760 (4) History of pulmonary embolism Current Visit: No Status: Acute Anticoagulation discontinued due to history of intracranial hemorrhage. SNOMED Code(s): 696101587 (5) HTN (hypertension) Current Visit: Yes Status: Chronic Qualifiers: Hypertension type: essential hypertension Qualified Code(s): I10 - Essential (primary) hypertension SNOMED Code(s): 67281522 (6) Hyperlipidemia Current Visit: Yes Status: Chronic Qualifiers: Hyperlipidemia type: unspecified Qualified Code(s): E78.5 - Hyperlipidemia, unspecified SNOMED Code(s): 49350881 (7) Peripheral vascular disease Current Visit: Yes Status: Chronic Dry gangrene noted to the right great toe. Follows with Dr. Fry. Planning outpatient amputation once cleared by neurology. SNOMED Code(s): 114308057 (8) SLE (systemic lupus erythematosus) Current Visit: No Status: Chronic Take Plaquenil. Qualifiers: Systemic lupus erythematosus type: other Systemic lupus erythematosus organ involvement: lung involvement Qualified Code(s): M32.13 - Lung involvement in systemic lupus erythematosus SNOMED Code(s): 94912836 (9) CAD (coronary artery disease) Current Visit: No Status: Chronic Qualifiers: Coronary Disease-Associated Artery/Lesion type: [place] artery [place] vs. transplanted heart: [place] heart Associated angina: without angina Qualified Code(s): I25.10 - Atherosclerotic heart disease of [place] coronary artery without angina pectoris SNOMED Code(s): 72382805 - Recommendations Recommendations: Await urine culture to finalize. Await blood cultures to finalize. Send sputum for culture if the patient is able to provide an adequate specimen. MANUFACTURING TECHNOLOGY ANALYST recommendations noted. Continue cefepime 2 g IV every 12 hours. Discontinue flagyl. Duration of treatment depends on the clinical picture. Can likely transition to PO Levaquin 750mg daily when ready for discharge to complete a total of 10 days of treatment (through 12/11/18). Monitor renal function and dose adjust antibiotics. Consult Discharge Plan - Plan Referrals: Cheikh Duong MD [Primary Care Provider] - Prescriptions: Ferrous Sulfate 325 mg PO DAILY@0800 30 Days #30 tablet levoFLOXacin [Levaquin] 750 mg PO DAILY 5 Days #5 tablet OxyCODONE Immed Rel [Roxicodone 10 MG] 10 mg PO BID PRN 5 Days #10 tablet PRN Reason: Pain Cyanocobalamin (B-12) [Vitamin B12] 1,000 mcg PO DAILY 30 Days #30 tablet - Attending Attestation I have personally performed a face to face evaluation on this patient. I have reviewed and agree with the care plan. History and Exam by me shows: 1.Sepsis 2.Pneumonia right lung base aspiration ruled out 3.Urinary tract infection with E coli 4.History of PE 5.History of intracranial bleed 6.Lupus on hydroxychloroquine no steroids or any immunosuppressive treatment 7.Dry gangrene right great toe Recommendations: Continue cefepime 2 g IV every 12 hours. Discontinue flagyl. Duration of treatment depends on the clinical picture. Can likely transition to PO Levaquin 750mg daily when ready for discharge to complete a total of 10 days of treatment (through 12/11/18). Monitor renal function and dose adjust antibiotics.
--- NOTE | 2018-12-05 13:28 | Internal Med Progress Note ---
Hospitalist Progress Note - Encounter Date of Encounter: 12/05/18 Time of Encounter: 10:00 - Subjective Interval History: No major events overnight. Patient was seen this a.m. sHe denied fever, chills or night sweats. sHe has no nausea, vomiting or abdominal pain. Patient denied chest pain, shortness of breath or palpitation. Patient still feels weak however better compared to admission. - Exam Vitals: Temp Pulse Resp BP Pulse Ox 98.1 F 73 17 100/65 94 12/05/18 10:33 12/05/18 10:33 12/05/18 10:33 12/05/18 10:33 12/05/18 10:33 Exam: ` General: Patient is alert, oriented 3. Head: Atraumatic, normal inspection, normocephalic. Eye: EOMI, PERRLA, no scleral icterus noted. ENT: Mucous membranes moist. No odontogenic infection noted. Neck: Normal inspection, no meningismus. Respiratory: RLL crackles Cardiovascular: Regular rate and regular rhythm, S1 and S2 audible. No murmurs, rubs, or gallops. GI: Soft, nondistended, normal bowel sounds. Extremities:right big toe dry gangrene, +1 dorsalis pedis pulses in the RLE and +2 in the LLE Neurological: Alert, oriented 3, no focal deficits. Psychiatric: normal affect, normal mood. Skin: Dry, intact, warm. Normal color. No rashes. - Assessment and Plan (1) Sepsis Current Visit: Yes Status: Acute (2) Pneumonia Current Visit: Yes Status: Acute (3) HTN (hypertension) Current Visit: Yes Status: Chronic (4) Hyperlipidemia Current Visit: Yes Status: Chronic (5) SLE (systemic lupus erythematosus) Current Visit: No Status: Chronic (6) Peripheral vascular disease Current Visit: Yes Status: Acute (7) Ischemic pain of right foot Current Visit: Yes Status: Chronic (8) Afib Current Visit: Yes Status: Chronic (9) History of subarachnoid hemorrhage Current Visit: No Status: Resolved (10) Adjustment disorder with anxiety Current Visit: No Status: Acute (11) DVT (deep venous thrombosis) Current Visit: No Status: Acute (12) CAD (coronary artery disease) Current Visit: No Status: Chronic - Summary of Assessment and Plan Summary of Assessment and Plan: 68-year-old female with history of SLE, DVT, PE, PVD, DM, HTN, CAD status post PCI, ICH who came into the hospital with weakness. Patient's reported generalized weakness for almost a week with dysuria. Her symptoms and manage as following: Sepsis: - Met 2/4 criteria at presentation. Source likely pneumonia and UTI. - Her leukocytosis resolved and her tachycardia improved. HAP: - CXR revealed worsening airspace disease in the right lung base compatible with pneumonia and small pleural effusion. - Blood cultures are pending, MRSA swab is -. - Currently on cefepime day 4 , DC vancomycin, azithromycin, and flagyl. - She is afebrile, hemodynamically stable, leukocytosis resolved. Was on 3 L of oxygen, now on room air. - Check CBC tomorrow UTI with hematuria: - UA is positive for blood, leukocyte esterase, WBC counts. UC is growing Ecoli. - Discussed with ID, Continue antibiotics as above. Anemia: -Hemoglobin is 9.6 from 11.1 at presentation -Her iron is low and her b12 as well. Will start her on oral supplments. - She need referral to GI for colonoscopy as outpatient given her infection now. Dysphagia: - Patient reported dysphagia, Speech therapy evaluated the patient and they cleared her. - Will proceed with barium swallow eval. History of intracranial bleed: - Was cleared previously by Neurology service to use aspirin. - CT head was negative for bleeding on aspirin. - Continue aspirin Right big toe foot gangrene: - I called vascular surgery Dr. Fry, patient is going to follow-up with him next Monday. - No procedure is planned from his standpoint until he sees the patient. - Neurology clearance will be required before any kind of surgery given her ICH in the past. She received outpatient neurologist on January 05. - I discussed with him personally and he does not feel like she needs inpatient neurology consult. d/w patient. Troponin elevation: - Likely type II event in light of her infection and PNA. - EKG without ischemic changes. Patient is asymptomatic. Hx of SLE and multiple blood clots (DVT/PE) s/p IVC placement on 10/31: - reviewed hematology notes as outpatient. Unable to put back on AC before neurology clearance as she is high risk of bleeding. - Continue Plaquenil CAD s/p CABG: - continue aspirin, losartan, beta blockers HTN: - Continue home medication DVT prophylaxis SCD I - Time Spent with Patient Total time spent is greater than 50% in coordination of care (as documented) at patient's floor/unit and/or counseling patient: Plan of Care Discussed with: patient Internal Medicine: Result - Labs CBC & Chem 7: 12/05/18 05:22 12/04/18 00:38 Labs: Short CBC 12/05/18 Range/Units 05:22 WBC 8.7 (4.3-11.1) K/mcL Hgb 10.1 L (11.5-15.4) g/dL Hct 33.3 L (35.3-44.9) % Plt Count 198 (140-400) K/mcL - ABG Interpretation ABG results: PT/INR, D-dimer PT 14.1 Seconds (9.4-12.1) H 12/03/18 05:44 Consult Discharge Plan - Plan Referrals: Cheikh Duong MD [Primary Care Provider] - (1) Sepsis Qualifiers: Sepsis type: sepsis due to unspecified organism Qualified Code(s): A41.9 - Sepsis, unspecified organism (2) Pneumonia Qualifiers: Pneumonia type: due to methicillin-resistant Staphylococcus aureus (MRSA) Laterality: bilateral Lung location: unspecified part of lung Qualified Code(s): J15.212 - Pneumonia due to Methicillin resistant Staphylococcus aureus (3) HTN (hypertension) Qualifiers: Hypertension type: essential hypertension Qualified Code(s): I10 - Essential (primary) hypertension (4) Hyperlipidemia Qualifiers: Hyperlipidemia type: unspecified Qualified Code(s): E78.5 - Hyperlipidemia, unspecified (5) SLE (systemic lupus erythematosus) Qualifiers: Systemic lupus erythematosus type: other Systemic lupus erythematosus organ involvement: lung involvement Qualified Code(s): M32.13 - Lung involvement in systemic lupus erythematosus (8) Afib Qualifiers: Atrial fibrillation type: chronic Qualified Code(s): I48.2 - Chronic atrial fibrillation (11) DVT (deep venous thrombosis) Qualifiers: DVT location: lower extremity Affected thrombotic vein of extremity: popliteal Chronicity: unspecified Laterality: right Qualified Code(s): I82.431 - Acute embolism and thrombosis of right popliteal vein (12) CAD (coronary artery disease) Qualifiers: Coronary Disease-Associated Artery/Lesion type: [place] artery [place] vs. transplanted heart: [place] heart Associated angina: without angina Qualified Code(s): I25.10 - Atherosclerotic heart disease of [place] coronary artery withou t angina pectoris
[2018-12-05] MEDS ORDERED: E-Z-PAQUE (BARIUM SULF) SUSP 1 BOTTLE PO ONE (16:20)
[2018-12-05] MEDS ORDERED: E-Z-HD (BARIUM SULF) SUSPENSION PO ONE (16:20)
[2018-12-05] MEDS: Isosorbide MONOnitrate (24 HR) 30 MG TAB.ER.24H PO SCH (16:41)
[2018-12-05] MEDS: Cefepime HCl 2,000 MG in Water for inj. (sterile) 20 ML IVP SCH ×2 (16:41→23:49)
[2018-12-05] MEDS: Metoprolol XL (24 HR) Succ 50 MG TAB.ER.24H PO SCH (16:41)
[2018-12-05] MEDS: Acetaminophen 325 MG TABLET PO PRN (18:58)
[2018-12-06] MEDS: Acetaminophen 325 MG TABLET PO PRN (02:10)
[2018-12-06 04:46] LABS: Hematocrit 32.9 % (35.3-44.9); Mean Corpuscular HGB Conc 30.4 g/dL (31.6-35.5); Mean Corpuscular Hemoglobin 27.5 pg (28.0-33.3); Mean Corpuscular Volume 90.6 fL (83.0-100.0); Mean Platelet Volume 11.6 fL (9.4-12.4); Platelet Count 201 K/mcL (140-400); Red Blood Count 3.63 M/mcL (3.82-4.97); Red Cell Distribution Width 14.2 % (11.5-14.5); White Blood Count 7.2 K/mcL (4.3-11.1)
[2018-12-06 05:05] LABS: BUN/Creatinine Ratio 16 (6-26); Blood Urea Nitrogen 13 mg/dL (8-23); Calcium 8.8 mg/dL (8.6-10.3); Carbon Dioxide 25 mEq/L (23-29); Chloride 108 mEq/L (98-107); Glucose 96 mg/dL (70-105); Osmolality,Calculated 290 (280-300); Potassium 3.9 mEq/L (3.5-5.1); Sodium 140 mEq/L (136-145); eGFR For African Americans > 60 (> 60); eGFR For Non-African Americans > 60 (> 60)
[2018-12-06] MEDS: Budesonide/Formoterol 160/4.5 1 PUFF INH IH SCH ×2 (07:43→19:53)
[2018-12-06] MEDS: Cefepime HCl 2,000 MG in Water for inj. (sterile) 20 ML IVP SCH ×2 (09:19→09:54)
[2018-12-06] MEDS: Cyanocobalamin (B-12) 1,000 MCG TABLET PO SCH (09:20)
[2018-12-06] MEDS: Cholecalciferol (D-3) 1,000 UNIT (25MCG) TABLET PO SCH (09:20)
[2018-12-06] MEDS: Gabapentin 400 MG CAPSULE PO SCH ×5 (09:21→20:59)
[2018-12-06] MEDS: amLODIPine 5 MG TABLET PO SCH (09:21)
[2018-12-06] MEDS: Aspirin 81 MG TAB.CHEW PO SCH (09:23)
[2018-12-06] MEDS ORDERED: Ondansetron 4 MG/2 ML VIAL IM ONE (09:57)
[2018-12-06] MEDS: Ondansetron ODT 4 MG TAB.RAPDIS SL PRN ×2 (11:01→21:30)
--- NOTE | 2018-12-06 11:29 | Infectious Disease Progress No ---
ID Progress Note Date of Encounter: 12/06/18 Time of Encounter: 11:26 - Subjective Subjective: Patient seen and examined. No acute events noted overnight. Patient states she had a rough night and didn't get much sleep. Denies fevers, chills, or rigors. Denies chest pain. Reports some chest congestion and dry cough. Denies vomiting, diarrhea, or constipation. Last BM this morning was soft. Reports some nausea. Denies abdominal pain. States urinary urinary urgency is better. Denies dysuria. Complains of pain to the right upper back that is worse with certain movements or cough and pain in the right foot. States appetite is better. Denies oral thrush or rashes. - Objective CBC & Chem 7: 12/06/18 04:17 12/06/18 04:17 - Exam Vitals: Temp Pulse Resp BP Pulse Ox 98.3 F 86 18 160/84 96 12/06/18 11:06 12/06/18 11:06 12/06/18 11:06 12/06/18 11:06 12/06/18 11:06 Exam: Head: Atraumatic, normal inspection, normocephalic. Eye: EOMI, PERRLA, no scleral icterus noted. ENT: Mucous membranes moist. No odontogenic infection noted. Neck: Normal inspection, no meningismus. Respiratory: Clear to auscultation. No rales, respiratory distress, rhonchi, or wheezes noted. Cardiovascular: Regular rate and rhythm, S1 and S2 audible. No murmurs, rubs, or gallops. GI: Soft, obese, normal bowel sounds. Extremities:No joint swelling, pedal edema, or tenderness noted. Necrosis noted to the distal aspect of the right great toe and right 2nd toe wound bed. No erythema, warmth, open lesion, or drainage. Back: Normal inspection. No vertebral tenderness noted. No CVAT noted. Neurological: Alert, oriented 3, no focal deficits. Psychiatric: normal affect, normal mood. Skin: Dry, intact, warm. Normal color. No rashes. - Assessment and Plan (1) Sepsis Current Visit: Yes Status: Acute The patient had 2 sepsis criteria on admission. Likely secondary to pneumonia and urinary tract infection. Improved. Leukocytosis and tachycardia have resolved. She has been afebrile. Blood cultures drawn 12/02/18 are no growth to date 2 sets. Qualifiers: Sepsis type: sepsis due to unspecified organism Qualified Code(s): A41.9 - Sepsis, unspecified organism SNOMED Code(s): 70701027 (2) Pneumonia Current Visit: Yes Status: Acute Location: Right lung base. Causative organism: Unclear. Chest x-ray showed worsening airspace disease in the right lung base consistent with pneumonia and small bilateral pleural effusions. MRSA nasal screen was negative. Legionella urinary antigen was negative. S. pneumo UAT negative. Aspiration is on the differential since the patient states she chokes when she eats and she recently had ICH. FLAME CUTTING MACHINE OPERATOR evaluation noted. MBS negative for aspiration. Currently on cefepime and flagyl. Qualifiers: Pneumonia type: due to methicillin-resistant Staphylococcus aureus (MRSA) Laterality: bilateral Lung location: unspecified part of lung Qualified Code(s): J15.212 - Pneumonia due to Methicillin resistant Staphylococcus aureus SNOMED Code(s): 953180237 (3) UTI (urinary tract infection) Current Visit: Yes Status: Acute Causative organism: Unclear. Previous urine culture 11/14/18 was positive for VRE. Urine culture is positive for E. coli. Currently on cefepime. Qualifiers: Urinary tract infection type: acute cystitis Hematuria presence: without hematuria Qualified Code(s): N30.00 - Acute cystitis without hematuria SNOMED Code(s): 18858225 (4) History of pulmonary embolism Current Visit: No Status: Acute Anticoagulation discontinued due to history of intracranial hemorrhage. SNOMED Code(s): 956578548 (5) HTN (hypertension) Current Visit: Yes Status: Chronic Qualifiers: Hypertension type: essential hypertension Qualified Code(s): I10 - Ess ential (primary) hypertension SNOMED Code(s): 90318533 (6) Hyperlipidemia Current Visit: Yes Status: Chronic Qualifiers: Hyperlipidemia type: unspecified Qualified Code(s): E78.5 - Hyperlipidemia, unspecified SNOMED Code(s): 84004505 (7) Peripheral vascular disease Current Visit: Yes Status: Acute Dry gangrene noted to the right great toe. Follows with Dr. Fry. Planning outpatient amputation once cleared by neurology. SNOMED Code(s): 940471539 (8) SLE (systemic lupus erythematosus) Current Visit: No Status: Chronic Take Plaquenil. Qualifiers: Systemic lupus erythematosus type: other Systemic lupus erythematosus organ involvement: lung involvement Qualified Code(s): M32.13 - Lung involvement in systemic lupus erythematosus SNOMED Code(s): 95734262 (9) CAD (coronary artery disease) Current Visit: No Status: Chronic Qualifiers: Coronary Disease-Associated Artery/Lesion type: [place] artery [place] vs. tr ansplanted heart: [place] heart Associated angina: without angina Qualified Code(s): I25.10 - Atherosclerotic heart disease of [place] coronary artery without angina pectoris SNOMED Code(s): 91586465 - Recommendations Recommendations: Await blood cultures to finalize. Send sputum for culture if the patient is able to provide an adequate specimen. The patient has lost IV access and is hesitant to have EPIV placed. Discontinue cefepime. Start levaquin 750mg PO Daily. Duration of treatment depends on the clinical picture, but recommend completing a total of 10 days of treatment (through 12/11/18). Monitor renal function and dose adjust antibiotics. - VTE Documentation of Mechanical Device: Intermittent pneumatic compression device Consult Discharge Plan - Plan Referrals: Cheikh Duong MD [Primary Care Provider] -
--- NOTE | 2018-12-06 11:48 | Discharge Summary ---
Orders not resulted at time of discharge: Pending orders 12/02/18 17:46 Culture,Blood [BC] Stat 12/03/18 07:17 Culture,Sputum with Gram Stain [RM] Routine Date of Encounter: 12/06/18 Time of Encounter: 11:43 - Discharge Diagnosis (1) Pneumonia Priority: Primary Status: Acute Qualifiers: Pneumonia type: due to methicillin-resistant Staphylococcus aureus (MRSA) Laterality: bilateral Lung location: unspecified part of lung Qualified Code(s): J15.212 - Pneumonia due to Methicillin resistant Staphylococcus aureus (2) CAD (coronary artery disease) Priority: Secondary Status: Chronic Qualifiers: Coronary Disease-Associated Artery/Lesion type: [place] artery [place] vs. transplanted heart: [place] heart Associated angina: without angina Qualified Code(s): I25.10 - Atherosclerotic heart disease of [place] coronary artery without angina pectoris (3) HTN (hypertension) Priority: Secondary Status: Chronic Qualifiers: Hypertension type: essential hypertension Qualified Code(s): I10 - Essential (primary) hypertension (4) Hyperlipidemia Priority: Secondary Status: Chronic Qualifiers: Hyperlipidemia type: unspecified Qualified Code(s): E78.5 - Hyperlipidemia, unspecified (5) SLE (systemic lupus erythematosus) Priority: Secondary Status: Chronic Qualifiers: Systemic lupus erythematosus type: other Systemic lupus erythematosus organ involvement: lung involvement Qualified Code(s): M32.13 - Lung involvement in systemic lupus erythematosus (6) DVT (deep venous thrombosis) Priority: Secondary Status: Chronic Qualifiers: DVT location: lower extremity Affected thrombotic vein of extremity: popliteal Chronicity: unspecified Laterality: right Qualified Code(s): I82.431 - Acute embolism and thrombosis of right popliteal vein (7) Peripheral vascular disease Priority: Secondary Status: Chronic (8) Ischemic pain of right foot Priority: Secondary Status: Chronic (9) Afib Priority: Secondary Status: Chronic Qualifiers: Atrial fibrillation type: chronic Qualified Code(s): I48.2 - Chronic atrial fibrillation (10) History of subarachnoid hemorrhage Priority: Secondary Status: Resolved (11) Adjustment disorder with anxiety Priority: Secondary Status: Chronic (12) Sepsis Priority: Primary Status: Resolved Qualifiers: Sepsis type: sepsis due to unspecified organism Qualified Code(s): A41.9 - Sepsis, unspecified organism Hospital course: Ms. Crowley is a 68 year old female past medical history of lupus, coronary artery disease status post stent placement, hypertension, intracranial hemorrhage and diabetes mellitus who presented to the ER with atypical chest pain associated with shortness of breath with exertion. She was admitted to the hospital due to sepsis, secondary to pneumonia, UTI. Patient was managed with broad-spectrum IV antibiotics. There was a concern for possible aspiration pneumonia and a modified barrium swallow was done: Negative for aspiration. Blood cultures: No growth to date. Urine negative for atypical organism. Urine cultures grew pansensitive Escherichia coli. ID was consulted for antibiotic management. Patient is hemodynamically stable to be discharged to ECF/SNF on oral antibiotics to complete 10 days of treatment. 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 Has an appointment on 12/10/18. - Time Spent with Patient Total time spent providing and/or coordinating discharge services: Time spent: Greater than 30 minutes (35) - Discharge Medications Prescriptions: New Ferrous Sulfate 325 mg PO DAILY@0800 30 Days #30 tablet levoFLOXacin [Levaquin] 750 mg PO DAILY 5 Days #5 tablet Cyanocobalamin (B-12) [Vitamin B12] 1,000 mcg PO DAILY 30 Days #30 tablet Continued Cholecalciferol (Vitamin D3) [Vitamin D3] 6,000 unit PO DAILY Nitroglycerin 0.4 mg SL AD PRN PRN Reason: Chest Pain Pantoprazole Sodium [Protonix] 40 mg PO DAILY Albuterol Sulfate [Ventolin Hfa] 2 puff IH Q4-6H PRN PRN Reason: Shortness Of Breath Hydroxychloroquine [Plaquenuil] 200 mg PO BID Budesonide/Formoterol 160/4.5 [Symbicort 160/4.5] 2 puff IH BIDR Losartan Potassium 50 mg PO DAILY Isosorbide MONOnitrate [Isosorbide Mononitrate ER] 15 mg PO QPM Amlodipine Besylate 2.5 mg PO DAILY Furosemide [Lasix] 40 mg PO PRN PRN PRN Reason: Edema Metoprolol Succinate [Toprol Xl] 50 mg PO DAILY Docusate [Colace] 100 mg PO BID PRN capsule PRN Reason: Constipation FentaNYL PATCH [Duragesic] 12 mcg TP Q72H Gabapentin [Neurontin] 400 mg PO TID OxyCODONE Immed Rel [Roxicodone 10 MG] 10 mg PO BID PRN 5 Days #10 tablet PRN Reason: Pain Home Medications: Albuterol Sulfate [Ventolin Hfa] 2 puff IH Q4-6H PRN 02/19/15 [History] Cholecalciferol (Vitamin D3) [Vitamin D3] 6,000 unit PO DAILY 02/19/15 [History] Hydroxychloroquine [Plaquenuil] 200 mg PO BID 02/19/15 [History] Nitroglycerin 0.4 mg SL AD PRN 02/19/15 [History] Pantoprazole Sodium [Protonix] 40 mg PO DAILY 02/19/15 [History] Budesonide/Formoterol 160/4.5 [Symbicort 160/4.5] 2 puff IH BIDR 08/05/16 [History] Isosorbide MONOnitrate [Isosorbide Mononitrate ER] 15 mg PO QPM 10/24/18 [History] Losartan Potassium 50 mg PO DAILY 10/24/18 [History] Amlodipine Besylate 2.5 mg PO DAILY 10/30/18 [History] Furosemide [Lasix] 40 mg PO PRN PRN 10/30/18 [History] Metoprolol Succinate [Toprol Xl] 50 mg PO DAILY 10/30/18 [History] Docusate [Colace] 100 mg PO BID PRN capsule 11/05/18 [Rx] FentaNYL PATCH [Duragesic] 12 mcg TP Q72H 12/03/18 [History] Gabapentin [Neurontin] 400 mg PO TID 12/03/18 [History] Cyanocobalamin (B-12) [Vitamin B12] 1,000 mcg PO DAILY 30 Days #30 tablet 12/06/18 [Rx] Ferrous Sulfate 325 mg PO DAILY@0800 30 Days #30 tablet 12/06/18 [Rx] OxyCODONE Immed Rel [Roxicodone 10 MG] 10 mg PO BID PRN 5 Days #10 tablet 12/06/18 [Rx] levoFLOXacin [Levaquin] 750 mg PO DAILY 5 Days #5 tablet 12/06/18 [Rx] Allergies/Adverse Reactions: Allergy/AdvReac Type Severity Reaction Status Date / Time Penicillins [PCN] Allergy Hives Verified 12/02/18 20:08 Sulfa (Sulfonamide Allergy Hives Verified 12/02/18 20:08 Antibiotics) Date of admission: 12/04/18 13:42 Primary care physician: Cheikh Duong MD Consults: 12/03/18 07:17 Consult to Nurse Navigator [CONS] Routine Comment: 12/04/18 07:33 Consult to Infectious Diseases [CONS] Routine Consulting Provider: Infectious Disease Ondina Reason for Consult: Hx of ESBL and VRE UTI, came in with urinary symptoms and worsening PNA on CXR. recommendations for Abx Call Completed: Yes 12/04/18 14:32 Consult to Wound Care [CONS] Routine Reason for Consult: "gangrene R toe" Call Completed: Yes 12/05/18 07:30 Consult to Speech Therapy [CONS] Routine Comment: Evaluate, develop and implement POC Reason for Consult: evaluate for aspiration Call Completed: No 12/05/18 12:09 Consult to Occupational Therapy [CONS] Routine Comment: Evaluate, develop and implement POC Reason for Consult: evaluate the need for skilled placement Does patient have active BEDREST order?: No Is patient medically & hemodynamically stable?: Yes 12/05/18 12:10 Consult to Physical Therapy [CONS] Routine Comment: Evaluate, develop and implement POC Reason for Consult: evaluate the need for skilled placement Does patient have active BEDREST order?: No Is patient medically & hemodynamically stable?: Yes 12/06/18 08:39 Consult to Colloid Mill Operator [CONS] Routine Reason for SW Consult: needs ecf - Constitutional Vitals: Temp Pulse Resp BP Pulse Ox 98.3 F 86 18 160/84 96 12/06/18 11:06 12/06/18 11:06 12/06/18 11:06 12/06/18 11:06 12/06/18 11:06 General appearance: Present: A&O X 3 Exam: Vitals: Reviewed General: Alert and oriented x4. In no distress, but emotional about her life situation. Cardiovascular: Irregularly irregular, normal S1 & S2, no rubs, murmurs or gallops. Lungs: CTA b/l, no wheezes or crackles. Abdomen: Obese, soft, non-tender, no rigidity. Extremities: dry gangrene of the the right big toe. Neurological: Normal cognition and motor skills. Rest of the physical exam is non contributory - Patient Status Disposition: Transfer SNF Condition: Good Functional capacity at discharge: independent ambulation Overall status at discharge: patient is progressing back to baseline - Discharge Instructions Follow Up With: Cheikh Duong MD [Primary Care Provider] - - Diet and Activity Activity: as per physical therapy Diet: advance to your usual diet - VTE Documentation of Mechanical Device: Intermittent pneumatic compression device
--- NOTE | 2018-12-06 11:55 | Physician Discharge Referral ---
ExtendedCare Referral Info Transfer To: ECF/SNF - Diagnosis (1) Pneumonia Priority: Primary Status: Acute (2) CAD (coronary artery disease) Priority: Secondary Status: Chronic (3) HTN (hypertension) Priority: Secondary Status: Chronic (4) Hyperlipidemia Priority: Secondary Status: Chronic (5) SLE (systemic lupus erythematosus) Priority: Secondary Status: Chronic (6) DVT (deep venous thrombosis) Priority: Secondary Status: Chronic (7) Peripheral vascular disease Priority: Secondary Status: Chronic (8) Ischemic pain of right foot Priority: Secondary Status: Chronic (9) Afib Priority: Secondary Status: Chronic (10) History of subarachnoid hemorrhage Priority: Secondary Status: Resolved (11) Adjustment disorder with anxiety Priority: Secondary Status: Chronic (12) Sepsis Priority: Secondary Status: Resolved (13) UTI (urinary tract infection) Priority: Secondary Status: Acute Prognosis: Fair Aware of Diagnosis: Patient Aware of Prognosis: Patient - Transfer Medications Prescriptions: Ferrous Sulfate 325 mg PO DAILY@0800 30 Days #30 tablet levoFLOXacin [Levaquin] 750 mg PO DAILY 5 Days #5 tablet OxyCODONE Immed Rel [Roxicodone 10 MG] 10 mg PO BID PRN 5 Days #10 tablet PRN Reason: Pain Cyanocobalamin (B-12) [Vitamin B12] 1,000 mcg PO DAILY 30 Days #30 tablet Home Medications: Albuterol Sulfate [Ventolin Hfa] 2 puff IH Q4-6H PRN 02/19/15 [History] Cholecalciferol (Vitamin D3) [Vitamin D3] 6,000 unit PO DAILY 02/19/15 [History] Hydroxychloroquine [Plaquenuil] 200 mg PO BID 02/19/15 [History] Nitroglycerin 0.4 mg SL AD PRN 02/19/15 [History] Pantoprazole Sodium [Protonix] 40 mg PO DAILY 02/19/15 [History] Budesonide/Formoterol 160/4.5 [Symbicort 160/4.5] 2 puff IH BIDR 08/05/16 [History] Isosorbide MONOnitrate [Isosorbide Mononitrate ER] 15 mg PO QPM 10/24/18 [History] Losartan Potassium 50 mg PO DAILY 10/24/18 [History] Amlodipine Besylate 2.5 mg PO DAILY 10/30/18 [History] Furosemide [Lasix] 40 mg PO PRN PRN 10/30/18 [History] Metoprolol Succinate [Toprol Xl] 50 mg PO DAILY 10/30/18 [History] Docusate [Colace] 100 mg PO BID PRN capsule 11/05/18 [Rx] FentaNYL PATCH [Duragesic] 12 mcg TP Q72H 12/03/18 [History] Gabapentin [Neurontin] 400 mg PO TID 12/03/18 [History] Cyanocobalamin (B-12) [Vitamin B12] 1,000 mcg PO DAILY 30 Days #30 tablet 12/06/18 [Rx] Ferrous Sulfate 325 mg PO DAILY@0800 30 Days #30 tablet 12/06/18 [Rx] OxyCODONE Immed Rel [Roxicodone 10 MG] 10 mg PO BID PRN 5 Days #10 tablet 12/06/18 [Rx] levoFLOXacin [Levaquin] 750 mg PO DAILY 5 Days #5 tablet 12/06/18 [Rx] Allergies/Adverse Reactions: Allergy/AdvReac Type Severity Reaction Status Date / Time Penicillins [PCN] Allergy Hives Verified 12/02/18 20:08 Sulfa (Sulfonamide Allergy Hives Verified 12/02/18 20:08 Antibiotics) - Respiratory Orders None Smoking Cessation: Smoking cessation has been advised. For more information, call the [place] Tobacco Quit Line at 7-938-HKRI-NOW. - Advance Directives Code Status: Full Code - Mobility Orders Ambulate - Rehabiliation Orders Rehab Potential: Fair Rehab Orders: Evaluation for Physical Therapy, Evaluation for Occupational Therapy - Diet Orders Regular CERTIFICATION: I certify that the transfer of the above named patient to an Extended Care Facility is necessary for the continuing treatment of the diagnosis listed. The above information is true and accurate reflection of patient's current condition. Confidential - Redisclosure prohibited without a patient's written consent.
[2018-12-06] MEDS: levoFLOXacin 750 MG TABLET PO SCH (15:39)
[2018-12-06] MEDS: Isosorbide MONOnitrate (24 HR) 30 MG TAB.ER.24H PO SCH (17:41)
[2018-12-06] MEDS: Metoprolol XL (24 HR) Succ 50 MG TAB.ER.24H PO SCH (17:42)
[2018-12-07] MEDS: Budesonide/Formoterol 160/4.5 1 PUFF INH IH SCH (07:11)
[2018-12-07] MEDS: levoFLOXacin 750 MG TABLET PO SCH (08:27)
[2018-12-07] MEDS: amLODIPine 5 MG TABLET PO SCH (08:27)
[2018-12-07] MEDS: Acetaminophen 325 MG TABLET PO PRN ×2 (08:27→15:02)
[2018-12-07] MEDS: Cholecalciferol (D-3) 1,000 UNIT (25MCG) TABLET PO SCH (08:27)
[2018-12-07] MEDS: Cyanocobalamin (B-12) 1,000 MCG TABLET PO SCH (08:27)
[2018-12-07] MEDS: Aspirin 81 MG TAB.CHEW PO SCH (08:27)
[2018-12-07] MEDS: Gabapentin 400 MG CAPSULE PO SCH ×2 (08:27→15:02)
[2018-12-07] MEDS: Ondansetron ODT 4 MG TAB.RAPDIS SL PRN (08:38)
--- NOTE | 2018-12-07 10:29 | Event Note ---
Date of Encounter: 12/07/18 Time of Encounter: 10:24 I have seen and evaluated the patient and bedside. Patient reports having some intentional tremors for the past 1-2 months. she also reports having a lot of anxiety issues due to some family situation. denies chest pain, nausea or vomiting. denies abdominal pain or urinary symptoms. Physical exam: Vitals: Reviewed General: Alert and oriented x4. In no distress. Cardiovascular: Irregularly irregular, normal S1 & S2, no rubs, murmurs or gallops. Lungs: CTA b/l, no wheezes or crackles. Abdomen: Obese, soft, non-tender, no rigidity. 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 Neurological: No focal neurological abnormalities Rest of the physical exam is non contributory Assessment: 1. Pneumonia 2. Coronary artery disease 3. Hypertension 4. Hyperlipidemia 5. Lupus 6. DVT 7. History of subarachnoid hemorrhage 8. Adjustment disorder with anxiety 9. Sepsis/resolved. 10. A. fib 11. Peripheral vascular disease 12. DVT prophylaxis Plan Patient is clinically stable to be discharged: Transfer to [facility] for rehabilitation. Patient with a history of DVT, and A. fib unable to be anticoagulated due to the recent history of subarachnoid hemorrhage. Recommended to follow-up with a neurologist as an outpatient to discuss resuming antiplatelet and possible anticoagulation DC summary dictated yesterday. updated.
[2018-12-07 11:04] VITALS: BP 129/69
== END 2018-12-07 16:52 | DRG 871 ==
LOC: EMEROOARM 16:09 → 2ANU 16:09 → SUATTDRO 18:55 → 2ANU 20:29 → SUATTDRO 12-04 13:42
PROVIDERS: ADMIT Student in an Organized Health Care Education/Training Program; ATTEND Internal Medicine

== ENCOUNTER 2020-08-19 15:36 | Inpatient (IN) ==
[2020-08-19] MEDS ORDERED: Isovue-370 500 ML BOTTLE IVP ONE (16:06)
[2020-08-19 16:14] LABS: Bilirubin,Urine Negative (Negative); Blood,Urine Negative (Negative); Clarity,Urine Clear (Clear); Color,Urine Light-Yellow (Yellow); Glucose,Urine (UA) Normal (Normal); Ketones,Urine Negative (Negative); Leukocyte Esterase,Urine Negative (Negative); Nitrite,Urine Negative (Negative); PH,Urine 6.5 pH Units (5.0-8.0); Protein,Urine Negative (Neg-Trace); Specific Gravity,Urine 1.006 (1.010-1.025); Urobilinogen,Urine Normal (Normal)
[2020-08-19 16:22] LABS: Basophils % 0.1 %; Hematocrit 42.3 % (35.3-44.9); Hemoglobin 13.5 g/dL (11.5-15.4); Immature Granulocytes % 0.4 % (0-4); Lymphocytes % 8.3 %; Mean Corpuscular HGB Conc 31.9 g/dL (31.6-35.5); Mean Corpuscular Volume 90.8 fL (83.0-100.0); Mean Platelet Volume 11.5 fL (9.4-12.4); Monocytes # 0.9 K/mcL (0.0-1.3); Monocytes % 7.7 %; Neutrophils # 10.2 K/mcL (1.6-8.9); Platelet Count 130 K/mcL (140-400); Red Blood Count 4.66 M/mcL (3.82-4.97); Red Cell Distribution Width 14.3 % (11.5-14.5); Segmented Neutrophils % 83.5 %; White Blood Count 12.2 K/mcL (4.3-11.1)
[2020-08-19 16:42] LABS: BUN/Creatinine Ratio 21 (6-26); Blood Urea Nitrogen 17 mg/dL (8-23); Calcium 8.4 mg/dL (8.6-10.3); Carbon Dioxide 24 mEq/L (23-29); Chloride 103 mEq/L (98-107); Glucose 112 mg/dL (70-105); Osmolality,Calculated 282 (280-300); Potassium 3.8 mEq/L (3.5-5.1); Sodium 135 mEq/L (136-145); eGFR For African Americans > 60 (> 60); eGFR For Non-African Americans > 60 (> 60)
[2020-08-19 16:49] LABS: Troponin I 0.65 ng/mL (< 0.04)
[2020-08-19] MEDS ORDERED: Aspirin 325 MG TABLET PO ONE (16:57)
[2020-08-19] MEDS ORDERED: Azithromycin 500 MG in 0.9 % Sodium Chloride 250 ML IVPB ONE (16:58)
[2020-08-19] MEDS ORDERED: cefTRIAXone 1,000 MG in 0.9 % Sodium Chloride Mini Bag 100 ML IVPB ONE (16:58)
[2020-08-19 17:31] LABS: Adenovirus Not Detected (Not Detect); Bordetella Pertussis Not Detected (Not Detect); Chlamydophila pneumoniae Not Detected (Not Detect); Coronavirus 229E Not Detected (Not Detect); Coronavirus HKU1 Not Detected (Not Detect); Coronavirus NL63 Not Detected (Not Detect); Coronavirus OC43 Not Detected (Not Detect); Human Metapneumovirus Not Detected (Not Detect); Human Rhinovirus/Enterovirus Not Detected (Not Detect); Influenza A Subtype 2009 H1 Not Detected (Not Detect); Influenza B Not Detected (Not Detect); Mycoplasma pneumoniae Not Detected (Not Detect); Parainfluenza Virus 1 Not Detected (Not Detect); Parainfluenza Virus 2 Not Detected (Not Detect); Parainfluenza Virus 3 Not Detected (Not Detect); Parainfluenza Virus 4 Not Detected (Not Detect); Respiratory Syncytial Virus Not Detected (Not Detect)
[2020-08-19 17:32] LABS: SARS-CoV-2 DETECTED (Not Detect)
[2020-08-19] MEDS ORDERED: *HR* Heparin 5,000 UNIT/ML VIAL IVP ONE (18:42)
[2020-08-19] MEDS ORDERED: *HR* Heparin 5,000 UNIT/ML VIAL IVP PRN ×2 (18:42)
[2020-08-19] MEDS ORDERED: Heparin 25,000UNIT/250ML 1/2NS 25,000 UNIT/250 ML IV.SOLN IVC SCH (18:45)
[2020-08-19] MEDS ORDERED: Naloxone 0.4 MG/ML INJ IVP PRN (19:27)
[2020-08-19 20:07] LABS: Hematocrit 41.3 % (35.3-44.9); Hemoglobin 13.4 g/dL (11.5-15.4); Mean Corpuscular HGB Conc 32.4 g/dL (31.6-35.5); Mean Corpuscular Hemoglobin 30.2 pg (28.0-33.3); Mean Platelet Volume 11.3 fL (9.4-12.4); Platelet Count 111 K/mcL (140-400); Red Blood Count 4.44 M/mcL (3.82-4.97); Red Cell Distribution Width 14.4 % (11.5-14.5); White Blood Count 10.8 K/mcL (4.3-11.1)
[2020-08-19 20:10] LABS: Heparin anti-factor XA UFH < 0.04 IU/mL (0.30-0.70)
[2020-08-19 20:11] LABS: INR 1.1
[2020-08-19] MEDS: Budesonide/Formoterol 160/4.5 1 PUFF INH IH SCH (20:36)
[2020-08-19] MEDS: Gabapentin 400 MG CAPSULE PO SCH (21:42)
[2020-08-19] MEDS: *HR* Ticagrelor 90 MG TABLET PO SCH (21:42)
[2020-08-19] MEDS ORDERED: Sennosides 8.6 MG TABLET PO PRN (23:13)
[2020-08-20 01:30] LABS: Hematocrit 36.4 % (35.3-44.9); Mean Corpuscular HGB Conc 31.9 g/dL (31.6-35.5); Mean Corpuscular Hemoglobin 29.1 pg (28.0-33.3); Mean Corpuscular Volume 91.2 fL (83.0-100.0); Mean Platelet Volume 11.1 fL (9.4-12.4); Platelet Count 106 K/mcL (140-400); Red Blood Count 3.99 M/mcL (3.82-4.97); Red Cell Distribution Width 14.4 % (11.5-14.5); White Blood Count 8.4 K/mcL (4.3-11.1)
[2020-08-20 01:37] LABS: Hemoglobin 11.6 g/dL (11.5-15.4)
[2020-08-20 01:51] LABS: BUN/Creatinine Ratio 23 (6-26); Blood Urea Nitrogen 20 mg/dL (8-23); C-Reactive Protein 109 mg/L (Less than 10); Carbon Dioxide 26 mEq/L (23-29); Chloride 106 mEq/L (98-107); Glucose 106 mg/dL (70-105); Lactate Dehydrogenase 124 Units/L (140-271); Osmolality,Calculated 289 (280-300); Potassium 3.5 mEq/L (3.5-5.1); Sodium 138 mEq/L (136-145); eGFR For African Americans > 60 (> 60); eGFR For Non-African Americans > 60 (> 60)
[2020-08-20 01:55] LABS: Troponin I 0.32 ng/mL (< 0.04)
[2020-08-20 02:09] LABS: Ferritin 61 ng/mL (10-120)
[2020-08-20] MEDS: Budesonide/Formoterol 160/4.5 1 PUFF INH IH SCH ×2 (08:02→22:52)
[2020-08-20] MEDS ORDERED: Azithromycin 500 MG in 0.9 % Sodium Chloride 250 ML IVPB SCH (09:00)
[2020-08-20] MEDS ORDERED: cefTRIAXone 1,000 MG in 0.9 % Sodium Chloride Mini Bag 100 ML IVPB SCH (09:00)
[2020-08-20] MEDS ORDERED: Aspirin Enteric Coated 81 MG Tablet PO SCH (09:00)
[2020-08-20] MEDS: Gabapentin 400 MG CAPSULE PO SCH ×3 (10:37→20:00)
[2020-08-20] MEDS: Metoprolol XL (24 HR) Succ 50 MG TAB.ER.24H PO SCH (10:37)
[2020-08-20] MEDS: Cyanocobalamin (B-12) 1,000 MCG TABLET PO SCH (10:37)
[2020-08-20] MEDS: *HR* Ticagrelor 90 MG TABLET PO SCH ×2 (10:38→20:00)
[2020-08-20] MEDS: Cholecalciferol (D-3) 1,000 UNIT (25MCG) TABLET PO SCH (10:38)
[2020-08-20] MEDS: cefTRIAXone 1,000 MG in 0.9 % Sodium Chloride Mini Bag 100 ML IVPB SCH (12:49)
[2020-08-20] MEDS: Acetaminophen 325 MG TABLET PO PRN ×2 (13:10→21:38)
[2020-08-20] MEDS ORDERED: *HR* Heparin 5,000 UNIT/ML VIAL IVP PRN ×2 (14:20)
[2020-08-20] MEDS: Heparin 25,000UNIT/250ML 1/2NS 25,000 UNIT/250 ML IV.SOLN IVC SCH (15:04)
[2020-08-20] MEDS ORDERED: Furosemide 40 MG TABLET PO PRN (17:06)
[2020-08-21 06:07] LABS: Mean Corpuscular HGB Conc 30.9 g/dL (31.6-35.5); Mean Corpuscular Hemoglobin 28.6 pg (28.0-33.3); Red Cell Distribution Width 14.5 % (11.5-14.5)
[2020-08-21 06:09] LABS: BUN/Creatinine Ratio 15 (6-26); Blood Urea Nitrogen 11 mg/dL (8-23); Calcium 8.1 mg/dL (8.6-10.3); Carbon Dioxide 23 mEq/L (23-29); Chloride 102 mEq/L (98-107); Glucose 85 mg/dL (70-105); Hematocrit 40.8 % (35.3-44.9); Hemoglobin 12.6 g/dL (11.5-15.4); Immature Platelets 5.5 % (1.1-6.1); Mean Corpuscular Volume 92.7 fL (83.0-100.0); Mean Platelet Volume 11.4 fL (9.4-12.4); Osmolality,Calculated 279 (280-300); Red Blood Count 4.4 M/mcL (3.82-4.97); Sodium 135 mEq/L (136-145); White Blood Count 7.6 K/mcL (4.3-11.1); eGFR For African Americans > 60 (> 60); eGFR For Non-African Americans > 60 (> 60)
[2020-08-21] MEDS: Cyanocobalamin (B-12) 1,000 MCG TABLET PO SCH (07:44)
[2020-08-21] MEDS: amLODIPine 5 MG TABLET PO SCH (07:44)
[2020-08-21] MEDS: *HR* Ticagrelor 90 MG TABLET PO SCH ×2 (07:44→19:38)
[2020-08-21] MEDS: Gabapentin 400 MG CAPSULE PO SCH ×3 (07:44→19:38)
[2020-08-21] MEDS: Isosorbide MONOnitrate (24 HR) 30 MG TAB.ER.24H PO SCH (07:44)
[2020-08-21] MEDS: Cholecalciferol (D-3) 1,000 UNIT (25MCG) TABLET PO SCH (07:44)
[2020-08-21] MEDS: Metoprolol XL (24 HR) Succ 50 MG TAB.ER.24H PO SCH (07:44)
[2020-08-21] MEDS: cefTRIAXone 1,000 MG in 0.9 % Sodium Chloride Mini Bag 100 ML IVPB SCH (07:45)
[2020-08-21] MEDS: Budesonide/Formoterol 160/4.5 1 PUFF INH IH SCH ×2 (07:50→22:00)
[2020-08-21] MEDS ORDERED: Perflutren Lipid Microsphere 1.3 ML in 0.9 % Sodium Chloride 8.7 ML IVP PRN (11:51)
[2020-08-21] MEDS: Acetaminophen 325 MG TABLET PO PRN ×2 (12:01→19:39)
[2020-08-21] MEDS: Heparin 25,000UNIT/250ML 1/2NS 25,000 UNIT/250 ML IV.SOLN IVC SCH (12:03)
[2020-08-22] MEDS: Budesonide/Formoterol 160/4.5 1 PUFF INH IH SCH (08:40)
[2020-08-22] MEDS ORDERED: Aspirin 81 MG TAB.CHEW PO SCH (09:00)
[2020-08-22] MEDS: cefTRIAXone 1,000 MG in 0.9 % Sodium Chloride Mini Bag 100 ML IVPB SCH (11:02)
[2020-08-22] MEDS: Isosorbide MONOnitrate (24 HR) 30 MG TAB.ER.24H PO SCH (11:02)
[2020-08-22] MEDS: amLODIPine 5 MG TABLET PO SCH (11:03)
[2020-08-22] MEDS: *HR* Ticagrelor 90 MG TABLET PO SCH (11:03)
[2020-08-22] MEDS: Cyanocobalamin (B-12) 1,000 MCG TABLET PO SCH (11:03)
[2020-08-22] MEDS: Gabapentin 400 MG CAPSULE PO SCH (11:03)
[2020-08-22] MEDS: Cholecalciferol (D-3) 1,000 UNIT (25MCG) TABLET PO SCH (11:03)
[2020-08-22] MEDS: Metoprolol XL (24 HR) Succ 50 MG TAB.ER.24H PO SCH (11:03)
[2020-08-22 13:30] VITALS: BP 130/82
[2020-08-22 14:18] LABS: Red Cell Distribution Width 14.5 % (11.5-14.5); White Blood Count 4.3 K/mcL (4.3-11.1)
[2020-08-22 14:19] LABS: Hematocrit 37.4 % (35.3-44.9); Hemoglobin 11.7 g/dL (11.5-15.4); Immature Platelets 5.8 % (1.1-6.1); Mean Corpuscular HGB Conc 31.3 g/dL (31.6-35.5); Mean Corpuscular Volume 92.6 fL (83.0-100.0); Mean Platelet Volume 11.7 fL (9.4-12.4); Red Blood Count 4.04 M/mcL (3.82-4.97)
[2020-08-22 14:36] LABS: BUN/Creatinine Ratio 14 (6-26); Blood Urea Nitrogen 11 mg/dL (8-23); Calcium 8.1 mg/dL (8.6-10.3); Carbon Dioxide 23 mEq/L (23-29); Chloride 105 mEq/L (98-107); Glucose 106 mg/dL (70-105); Osmolality,Calculated 284 (280-300); Potassium 3.6 mEq/L (3.5-5.1); Sodium 137 mEq/L (136-145); eGFR For African Americans > 60 (> 60); eGFR For Non-African Americans > 60 (> 60)
== END 2020-08-22 19:15 | disposition home or self-care (01) | DRG 871 ==
LOC: 3BNU 15:36 → EMEROOARM 15:36 → SUATTDRO 19:06 → 3BNU 19:49
PROVIDERS: ADMIT Internal Medicine; ATTEND Family Medicine

== ENCOUNTER 2021-02-27 19:19 | Inpatient (IN) ==
[2021-02-27] MEDS ORDERED: Ondansetron 4 MG/2 ML VIAL IVP ONE (19:58)
[2021-02-27] MEDS ORDERED: 0.9 % Sodium Chloride 500 ML IV ONE (19:59)
[2021-02-27 20:10] LABS: Basophils % 0.3 %; Eosinophils % 0.3 %; Hematocrit 40.9 % (35.3-44.9); Hemoglobin 13.2 g/dL (11.5-15.4); Immature Granulocytes % 0.3 % (0-4); Lymphocytes # 0.8 K/mcL (0.6-4.6); Lymphocytes % 7.1 %; Mean Corpuscular HGB Conc 32.3 g/dL (31.6-35.5); Mean Corpuscular Hemoglobin 29.3 pg (28.0-33.3); Mean Corpuscular Volume 90.9 fL (83.0-100.0); Mean Platelet Volume 11.5 fL (9.4-12.4); Monocytes # 1.3 K/mcL (0.0-1.3); Monocytes % 11.5 %; Platelet Count 142 K/mcL (140-400); Red Cell Distribution Width 15.2 % (11.5-14.5); Segmented Neutrophils % 80.5 %; White Blood Count 11.2 K/mcL (4.3-11.1)
[2021-02-27 20:25] LABS: INR 1.2; Prothrombin Time 13.5 Seconds (9.4-12.1)
[2021-02-27 20:28] LABS: Activated Partial Thrombo Time 30.1 Seconds (26.0-36.0)
[2021-02-27 20:35] LABS: BUN/Creatinine Ratio 25 (6-26); Blood Urea Nitrogen 18 mg/dL (8-23); Carbon Dioxide 24 mEq/L (23-29); Chloride 103 mEq/L (98-107); Glucose 92 mg/dL (70-105); Lipase 7 Units/L (11-82); Osmolality,Calculated 286 (280-300); Potassium 3.4 mEq/L (3.5-5.1); Sodium 137 mEq/L (136-145); eGFR For African Americans > 60 (> 60); eGFR For Non-African Americans > 60 (> 60)
[2021-02-27 20:40] LABS: Troponin I 0.04 ng/mL (< 0.04)
[2021-02-27] MEDS ORDERED: Isovue-370 500 ML BOTTLE IVP ONE (21:11)
[2021-02-27] MEDS ORDERED: Aspirin 325 MG TABLET PO ONE (21:12)
[2021-02-28] MEDS: Azithromycin 500 MG in 0.9 % Sodium Chloride 250 ML IVPB ONE ×2 (03:09→09:33)
[2021-02-28] MEDS ORDERED: Naloxone 0.4 MG/ML INJ IVP PRN (03:33)
[2021-02-28] MEDS ORDERED: Ondansetron 4 MG/2 ML VIAL IVP PRN (03:33)
[2021-02-28] MEDS ORDERED: *HR* Promethazine 25 MG/ML VIAL IM PRN (05:23)
[2021-02-28] MEDS ORDERED: GI Cocktail 40 ML EACH PO ONE (05:23)
[2021-02-28] MEDS ORDERED: Perflutren Lipid Microsphere 1.3 ML in 0.9 % Sodium Chloride 8.7 ML IVP PRN (08:20)
[2021-02-28] MEDS ORDERED: levoFLOXacin 750 MG TABLET PO SCH (12:00)
[2021-02-28] MEDS: Ondansetron ODT 4 MG TAB.RAPDIS SL PRN (15:22)
[2021-02-28] MEDS ORDERED: Furosemide 40 MG TABLET PO PRN (15:36)
[2021-02-28] MEDS: metroNIDAZOLE 500 MG TABLET PO SCH ×2 (16:24→20:20)
[2021-02-28] MEDS: Gabapentin 400 MG CAPSULE PO SCH (20:21)
[2021-02-28] MEDS: *HR* Ticagrelor 90 MG TABLET PO SCH (20:21)
[2021-02-28 22:22] LABS: Campylobacter by PCR DETECTED (Not detect)
[2021-02-28 22:31] LABS: Adenovirus F 40/41 PCR Not detected (Not detect); Astrovirus PCR Not detected (Not detect); C.difficile Toxin A/B Gene PCR DETECTED (Not detect); Cryptosporidium by PCR Not detected (Not detect); Cyclospora cayetanensis PCR Not detected (Not detect); E. coli O157 by PCR Not detected (Not detect); Entamoeba histolytica PCR Not detected (Not detect); Enteroaggregative E.coli(EAEC) Not detected (Not detect); Enteropathogenic E.coli(EPEC) Not detected (Not detect); Enterotoxigenic E.coli (ETEC) Not detected (Not detect); Giardia lamblia PCR Not detected (Not detect); Norovirus GI/GII PCR Not detected (Not detect); Plesiomonas shigelloides PCR Not detected (Not detect); Rotavirus A PCR Not detected (Not detect); Salmonella PCR Not detected (Not detect); Sapovirus PCR Not detected (Not detect); Shig/EnteroinvasiveE coli EIEC Not detected (Not detect); Shigalike tox-prod E coli STEC Not detected (Not detect); Vibrio PCR Not detected (Not detect); Vibrio cholerae PCR Not detected (Not detect); Yersinia enterocolitica PCR Not detected (Not detect)
[2021-02-28] MEDS: Vancomycin Oral Soln 125 MG/2.5 ML UDC PO SCH (23:48)
[2021-03-01] MEDS: *HR* Enoxaparin 40 MG/0.4 ML SYRINGE SQ SCH (05:31)
[2021-03-01 05:50] LABS: Hematocrit 36.1 % (35.3-44.9); Hemoglobin 11.7 g/dL (11.5-15.4); Mean Corpuscular HGB Conc 32.4 g/dL (31.6-35.5); Mean Corpuscular Hemoglobin 29.8 pg (28.0-33.3); Mean Corpuscular Volume 92.1 fL (83.0-100.0); Mean Platelet Volume 11.5 fL (9.4-12.4); Platelet Count 136 K/mcL (140-400); Red Blood Count 3.92 M/mcL (3.82-4.97); Red Cell Distribution Width 15.1 % (11.5-14.5); White Blood Count 6.4 K/mcL (4.3-11.1)
[2021-03-01 06:11] LABS: BUN/Creatinine Ratio 15 (6-26); Blood Urea Nitrogen 11 mg/dL (8-23); Calcium 8.5 mg/dL (8.6-10.3); Carbon Dioxide 24 mEq/L (23-29); Chloride 107 mEq/L (98-107); Glucose 96 mg/dL (70-105); Osmolality,Calculated 285 (280-300); Potassium 3.3 mEq/L (3.5-5.1); Sodium 138 mEq/L (136-145); eGFR For African Americans > 60 (> 60); eGFR For Non-African Americans > 60 (> 60)
[2021-03-01] MEDS: Metoprolol XL (24 HR) Succ 50 MG TAB.ER.24H PO SCH (08:34)
[2021-03-01] MEDS: Aspirin Enteric Coated 81 MG Tablet PO SCH (08:35)
[2021-03-01] MEDS: *HR* Ticagrelor 90 MG TABLET PO SCH ×2 (08:35→19:47)
[2021-03-01] MEDS: Isosorbide MONOnitrate (24 HR) 30 MG TAB.ER.24H PO SCH (08:35)
[2021-03-01] MEDS: Gabapentin 400 MG CAPSULE PO SCH ×2 (08:35→19:47)
[2021-03-01] MEDS ORDERED: amLODIPine 5 MG TABLET PO SCH ×2 (09:00→21:00)
[2021-03-01] MEDS: Vancomycin Oral Soln 125 MG/2.5 ML UDC PO SCH ×4 (10:01→19:47)
[2021-03-02] MEDS: *HR* Enoxaparin 40 MG/0.4 ML SYRINGE SQ SCH (06:07)
[2021-03-02] MEDS: *HR* Ticagrelor 90 MG TABLET PO SCH ×2 (07:35→21:56)
[2021-03-02] MEDS: Aspirin Enteric Coated 81 MG Tablet PO SCH (07:35)
[2021-03-02] MEDS: Isosorbide MONOnitrate (24 HR) 30 MG TAB.ER.24H PO SCH (07:35)
[2021-03-02] MEDS: Vancomycin Oral Soln 125 MG/2.5 ML UDC PO SCH ×4 (07:36→21:56)
[2021-03-02] MEDS: Gabapentin 400 MG CAPSULE PO SCH ×2 (07:36→21:56)
[2021-03-02] MEDS: Metoprolol XL (24 HR) Succ 50 MG TAB.ER.24H PO SCH (07:36)
[2021-03-02] MEDS ORDERED: Ipratropium/Albuterol Neb 3 ML IH PRN (09:35)
[2021-03-02 09:46] LABS: Hematocrit 39.7 % (35.3-44.9); Hemoglobin 12.5 g/dL (11.5-15.4); Mean Corpuscular HGB Conc 31.5 g/dL (31.6-35.5); Mean Corpuscular Hemoglobin 29.2 pg (28.0-33.3); Mean Corpuscular Volume 92.8 fL (83.0-100.0); Mean Platelet Volume 11.7 fL (9.4-12.4); Platelet Count 211 K/mcL (140-400); Red Blood Count 4.28 M/mcL (3.82-4.97); Red Cell Distribution Width 15.2 % (11.5-14.5); White Blood Count 7.9 K/mcL (4.3-11.1)
[2021-03-02 10:04] LABS: BUN/Creatinine Ratio 10 (6-26); Blood Urea Nitrogen 7 mg/dL (8-23); Calcium 8.7 mg/dL (8.6-10.3); Carbon Dioxide 25 mEq/L (23-29); Chloride 109 mEq/L (98-107); Glucose 95 mg/dL (70-105); Osmolality,Calculated 288 (280-300); Potassium 3.6 mEq/L (3.5-5.1); Sodium 140 mEq/L (136-145); eGFR For African Americans > 60 (> 60); eGFR For Non-African Americans > 60 (> 60)
[2021-03-02 10:11] LABS: Troponin I < 0.03 ng/mL (< 0.04)
[2021-03-02] MEDS: Budesonide/Formoterol 160/4.5 1 PUFF INH IH SCH ×2 (15:31→21:40)
[2021-03-02] MEDS: amLODIPine 5 MG TABLET PO SCH (22:04)
[2021-03-03] MEDS: *HR* Enoxaparin 40 MG/0.4 ML SYRINGE SQ SCH (05:17)
[2021-03-03] MEDS: Acetaminophen 325 MG TABLET PO PRN (05:17)
[2021-03-03] MEDS: Vancomycin Oral Soln 125 MG/2.5 ML UDC PO SCH ×4 (09:19→22:34)
[2021-03-03] MEDS: Aspirin Enteric Coated 81 MG Tablet PO SCH (09:21)
[2021-03-03] MEDS: Isosorbide MONOnitrate (24 HR) 30 MG TAB.ER.24H PO SCH (09:21)
[2021-03-03] MEDS: Gabapentin 400 MG CAPSULE PO SCH ×2 (09:21→22:34)
[2021-03-03] MEDS: Metoprolol XL (24 HR) Succ 50 MG TAB.ER.24H PO SCH (09:21)
[2021-03-03] MEDS: *HR* Ticagrelor 90 MG TABLET PO SCH ×2 (09:22→22:34)
[2021-03-03] MEDS: Budesonide/Formoterol 160/4.5 1 PUFF INH IH SCH ×2 (12:14→20:09)
[2021-03-03 18:24] LABS: BUN/Creatinine Ratio 14 (6-26); Blood Urea Nitrogen 10 mg/dL (8-23); Calcium 8.4 mg/dL (8.6-10.3); Carbon Dioxide 26 mEq/L (23-29); Chloride 109 mEq/L (98-107); Glucose 93 mg/dL (70-105); Osmolality,Calculated 291 (280-300); Potassium 3.5 mEq/L (3.5-5.1); Sodium 141 mEq/L (136-145); eGFR For African Americans > 60 (> 60); eGFR For Non-African Americans > 60 (> 60)
[2021-03-03] MEDS: amLODIPine 5 MG TABLET PO SCH (22:34)
[2021-03-04] MEDS: Acetaminophen 325 MG TABLET PO PRN ×2 (03:45→17:23)
[2021-03-04] MEDS: *HR* Enoxaparin 40 MG/0.4 ML SYRINGE SQ SCH (06:13)
[2021-03-04] MEDS: Budesonide/Formoterol 160/4.5 1 PUFF INH IH SCH ×2 (07:40→20:21)
[2021-03-04] MEDS: Vancomycin Oral Soln 125 MG/2.5 ML UDC PO SCH ×4 (09:49→21:39)
[2021-03-04] MEDS: *HR* Ticagrelor 90 MG TABLET PO SCH ×2 (09:50→21:38)
[2021-03-04] MEDS: Gabapentin 400 MG CAPSULE PO SCH ×2 (09:50→21:26)
[2021-03-04] MEDS: Isosorbide MONOnitrate (24 HR) 30 MG TAB.ER.24H PO SCH (09:51)
[2021-03-04] MEDS: Metoprolol XL (24 HR) Succ 50 MG TAB.ER.24H PO SCH (09:52)
[2021-03-04] MEDS: Aspirin Enteric Coated 81 MG Tablet PO SCH (09:52)
[2021-03-04 11:13] LABS: Hematocrit 36.9 % (35.3-44.9); Hemoglobin 11.8 g/dL (11.5-15.4); Mean Corpuscular Hemoglobin 29.4 pg (28.0-33.3); Mean Corpuscular Volume 91.8 fL (83.0-100.0); Mean Platelet Volume 11.4 fL (9.4-12.4); Platelet Count 206 K/mcL (140-400); Red Blood Count 4.02 M/mcL (3.82-4.97); Red Cell Distribution Width 15.3 % (11.5-14.5); White Blood Count 7.8 K/mcL (4.3-11.1)
[2021-03-04 11:31] LABS: BUN/Creatinine Ratio 13 (6-26); Blood Urea Nitrogen 8 mg/dL (8-23); Calcium 8.8 mg/dL (8.6-10.3); Carbon Dioxide 26 mEq/L (23-29); Chloride 108 mEq/L (98-107); Glucose 103 mg/dL (70-105); Osmolality,Calculated 289 (280-300); Potassium 3.7 mEq/L (3.5-5.1); Sodium 140 mEq/L (136-145); eGFR For African Americans > 60 (> 60); eGFR For Non-African Americans > 60 (> 60)
[2021-03-04] MEDS: Ondansetron ODT 4 MG TAB.RAPDIS SL PRN (17:29)
[2021-03-04] MEDS: amLODIPine 5 MG TABLET PO SCH (21:27)
[2021-03-05] MEDS: Ondansetron ODT 4 MG TAB.RAPDIS SL PRN ×2 (03:54→10:18)
[2021-03-05] MEDS: Acetaminophen 325 MG TABLET PO PRN (03:54)
[2021-03-05] MEDS: *HR* Enoxaparin 40 MG/0.4 ML SYRINGE SQ SCH (05:23)
[2021-03-05 07:04] LABS: Hematocrit 35.7 % (35.3-44.9); Hemoglobin 11.2 g/dL (11.5-15.4); Mean Corpuscular HGB Conc 31.4 g/dL (31.6-35.5); Mean Corpuscular Hemoglobin 29.4 pg (28.0-33.3); Mean Corpuscular Volume 93.7 fL (83.0-100.0); Mean Platelet Volume 11.2 fL (9.4-12.4); Platelet Count 186 K/mcL (140-400); Red Blood Count 3.81 M/mcL (3.82-4.97); Red Cell Distribution Width 15.6 % (11.5-14.5); White Blood Count 9.2 K/mcL (4.3-11.1)
[2021-03-05] MEDS: Budesonide/Formoterol 160/4.5 1 PUFF INH IH SCH (07:23)
[2021-03-05 08:43] LABS: BUN/Creatinine Ratio 12 (6-26); Blood Urea Nitrogen 8 mg/dL (8-23); Calcium 8.4 mg/dL (8.6-10.3); Carbon Dioxide 27 mEq/L (23-29); Chloride 107 mEq/L (98-107); Glucose 95 mg/dL (70-105); Osmolality,Calculated 286 (280-300); Potassium 4.1 mEq/L (3.5-5.1); Sodium 139 mEq/L (136-145); eGFR For African Americans > 60 (> 60); eGFR For Non-African Americans > 60 (> 60)
[2021-03-05] MEDS: Isosorbide MONOnitrate (24 HR) 30 MG TAB.ER.24H PO SCH (10:05)
[2021-03-05] MEDS: Metoprolol XL (24 HR) Succ 50 MG TAB.ER.24H PO SCH (10:05)
[2021-03-05] MEDS: Gabapentin 400 MG CAPSULE PO SCH (10:05)
[2021-03-05] MEDS: Aspirin Enteric Coated 81 MG Tablet PO SCH (10:05)
[2021-03-05] MEDS: Vancomycin Oral Soln 125 MG/2.5 ML UDC PO SCH ×2 (10:05→12:33)
[2021-03-05] MEDS: *HR* Ticagrelor 90 MG TABLET PO SCH (10:05)
[2021-03-05 10:58] VITALS: BP 111/74; PULSE 61; TEMP 97.9; O2SAT 93
== END 2021-03-05 16:11 | disposition home or self-care (01) | DRG 372 ==
LOC: 3BNU 19:19 → EMEROOARM 19:19 → 3BNU 02-28 04:43 → SUATTDRO 02-28 17:06
PROVIDERS: ADMIT Family Medicine; ATTEND Internal Medicine